=== PATIENT | female | born 1975 | race Caucasian/White ===

== ENCOUNTER 2017-07-13 13:47 | Day surgery (SDC) | payer SELFPAY ==
[~2017-07-13 13:47] MED LIST: DEXAMETHASONE SOD PHOSPHATE 10 MG/ML 1 ML VIAL IV ONE; HYDROmorphone 0.5 MG/0.5 ML SYRINGE IVP PRN; MIDAZOLAM 2 MG/2 ML VIAL IV PRN; ONDANSETRON 4 MG/2 ML VIAL IVP ONE; ceFAZolin IN SWFI 2 GM/20 ML SYRINGE IVP ONE
[2017-07-13] MEDS ORDERED: LIDOCAINE 1% 20 ML VIAL (10MG/ML) FOR IV START INTRADERMA ONE (15:00)
[2017-07-13] MEDS ORDERED: MIDAZOLAM 2 MG/2 ML VIAL IVP ONE (15:59)
[2017-07-13] MEDS ORDERED: fentaNYL (PF) 50 MCG/ML 2 ML AMP IVP ONE (15:59)
[2017-07-13] MEDS ORDERED: LACTATED RINGERS 1,000 ML IV ONE ×3 (16:00→18:15)
[2017-07-13] MEDS ORDERED: KETAMINE 10 MG/ML 20 ML VIAL ONE (16:50)
[2017-07-13] MEDS ORDERED: PROPOFOL 10 MG/ML 20 ML VIAL IV ONE (16:50)
[2017-07-13] MEDS ORDERED: MIDAZOLAM 2 MG/2 ML VIAL ONE (16:50)
[2017-07-13] MEDS ORDERED: diphenhydrAMINE 50 MG/ML 1 ML VIAL ONE (16:50)
[2017-07-13] MEDS ORDERED: fentaNYL (PF) 50 MCG/ML 2 ML AMP ONE (16:50)
[2017-07-13 16:55] LABS: CH 32.9; CHCM 33.2; HCT 45.5 % (34.0-46.0); HDW 2.16; HGB 14.8 gm/dL (11.4-16.0); MCH 32.5 pg (25.0-35.0); MCHC 32.6 g/dL (31.0-37.0); MCV 99.6 fL (80.0-100.0); Mean Platelet Volume 10.2; RBC 4.56 m/uL (3.80-5.40); WBC 3.8 k/uL (3.8-10.6)
[2017-07-13] MEDS ORDERED: HYDROmorphone 1 MG/ML 1 ML SYRINGE IVP PRN ×3 (17:00)
[2017-07-13] MEDS ORDERED: METOCLOPRAMIDE 5 MG/ML 2 ML VIAL IVP PRN (17:00)
[2017-07-13] MEDS ORDERED: PROCHLORPERAZINE SUPPOSITORY 25 MG SUPP RECTAL PRN (17:00)
[2017-07-13] MEDS ORDERED: SENNOSIDES-DOCUSATE SODIUM 1 EACH TAB PO PRN (17:00)
[2017-07-13] MEDS ORDERED: ONDANSETRON 4 MG/2 ML VIAL IVP PRN (17:00)
[2017-07-13] MEDS ORDERED: diphenhydrAMINE 25 MG CAP PO PRN (17:00)
[2017-07-13] MEDS ORDERED: hydrOXYzine PAMOATE 25 MG CAP PO PRN (17:00)
[2017-07-13] MEDS ORDERED: TEMAZEPAM 15 MG CAP PO PRN (17:00)
[2017-07-13] MEDS ORDERED: ceFAZolin 1,000 MG in SODIUM CHLORIDE 0.9% 1,000 ML IRRIGATION ONE (18:00)
--- NOTE | 2017-07-13 19:01 | P.ONQ ---
Anesthesiology Proc Note - PNB - Peripheral Nerve Block Performed Right Popliteal Single Time Out Performed: Yes Indication: Acute Post-Operative Pain, Analgesia Specifically requested for management of pain by DrIliana: Jorge L Flores Sedation Type: Sedate with meaningful contact maintained Preparation: Sterile Prep Position: Supine (Left Lateral) Catheter: None Needle Types: Other (see comment) (Pajunk) Needle Size: 50mm (2") Needle Gauge: 21 Technique: Ultrasound Injectate: Other (see comment) (15 cc 0.5 ropivicaine + 15 cc 2% lidocaine) Adjunct: Epinephrine (see comment for dilution ratio) (1:200,000) Blood Aspirated: No Pain Paresthesia on Injection Noted: No Resistance on Injection: Normal Events: Uneventful and Well Tolerated
--- NOTE | 2017-07-13 19:15 | P.OP ---
Date of Procedure: 07/13/17 Preoperative Diagnosis: 1. closed right trimalleolar ankle fracture 2. Current every day cigarette smoker 3. Chronic alcohol use Postoperative Diagnosis: same Procedure(s) Performed: open reduction and internal fixation right medial and lateral malleolus, nonoperative management right posterior malleolus fracture Anesthesia: regional, spinal Surgeon: Jorge L Flores Estimated Blood Loss (ml): 20 IV fluids (ml): 1,300 Pathology: none sent Condition: stable Disposition: PACU Indications for Procedure: the patient is a 41-year-old female who sustained a fall when she slipped on an acorn in late June. She was brought to the emergency department with an isolated injury in her right ankle. She underwent closed reduction of an ankle fracture followed by application of a splint. She was seen by myself in the office. She was found to have a displaced trimalleolar ankle fracture. She underwent unroofing of hemorrhagic fracture blisters both medially and laterally. She had Silvadene dressing placed followed by well-padded bulky Mosquera splint. She was also put on Bactrim. I saw the patient last week and she had resolution of her swelling and healing of her fracture blisters. I recommended open reduction internal fixation of her right ankle fracture. We discussed potential risks and complications including but not limited to risk of anesthesia, risk of superficial infection, risk of deep infection, risk of delayed wound healing, risks of superficial wound necrosis, risk of fracture nonunion, risk of fracture malunion, risk of intraoperative fracture, risk of postoperative fracture, risk of postoperative displacement requiring further surgery, risk of chronic pain, risk of chronic swelling, risk of inability to regain preinjury level of function, risk of generalized to satisfaction with surgery, risk of DVT, risk of PE, risk of other medical problems, and possibly loss of life or limb. The patient voiced her understanding of this and also acknowledges that she is at a much higher risk of having a complication due to her history of smoking and chronic alcohol abuse. Description of Procedure: he was identified in preoperative holding and the correct right ankle was marked with my initials. I reviewed the consent form with the patient and her daughter and all their questions were answered. The patient had a popliteal and saphenous nerve block placed by anesthesia. She was then brought back to the operating room. She was positioned on the OR table and a spinal anesthetic and preoperative antibiotics were administered. The patient's bulky Mosquera splint was taken down. On inspection of the ankle there were healed fracture blisters and wrinkling of the skin. A tourniquet was applied to the proximal aspect of the right thigh. The left leg was secured to the table using foam and tape. A bone foam bump was placed under her right buttock. A ramp was placed under her right leg. The patient's right leg was then prepped and draped in the standard sterile fashion. Prior to starting surgery timeout was performed identifying the correct patient, operative extremity, and procedure. The patient's leg was then elevated, exsanguinated with an Esmarch bandage and the tourniquet was inflated to 250 mmHg. I began by outlining a straight lateral incision to the lateral malleolus. Skin incision was made a 15 blade scalpel. Dissection was carried down carefully through the subcutaneous tissue with tenotomy scissors. The fracture was then identified and sharply debrided. The fracture was then gently reduced and the reduction was held with 2 kebjj-sh-rjdor reduction clamps. Fluoroscopy was used to verify reduction. The fibula fracture appeared to be out to length and the talus was reduced within the ankle mortise. I then contoured a 8 hole one third tubular plate to use as a posterior lateral construct. I placed a single 3.5 mm screw in the hole just proximal to the fracture bring the plate down to bone. I then placed a second 3.5 mm screw in the most proximal hole of the plate. Attention was then turned distally. I placed a fully threaded 3.5 mm screw in the most distal hole of the plate. I then placed 3 additional screws proximal to the plate. I then placed a lag screw through the seventh hole of the plate. A 3.5 mm drill bit was used to create a gliding hole through the posterior cortex the distal fragment and a 2.5 mm drill bit was used to create a threaded hole knee anterior cortex of the proximal fragment. A fully threaded 3.5 monitor lag screw is placed across the fracture generating excellent compression. At this point both reduction clamps were removed and the fibular reduction held. I verified both the reduction and hardware placement with C-arm fluoroscopy. Attention was then turned to the medial malleolus. I outlined a straight medial approach over the medial malleolus. Skin incision made a 15 blade scalpel. I dissected carefully down to the subcutaneous tissue with tenotomy scissors. The saphenous vein and nerve were identified and retracted anteriorly.. Using a scalpel I cleaned the fracture site of debris. I poked the fragment open and there were no loose osteochondral fragments in the joint. I then used a 2.0 mm jewel bit to create a single hole just proximal to the fracture. Using a [id number] reduction clamp I placed one jose in the previously made drill hole and the other jose at the tip of the medial malleolus. I gently reduced the medial malleolus fragment. On inspection the fragment appeared to be anatomically reduced. Fluoroscopy was used to verify position of the fragment. I then placed 2 K wires both anteriorly and posterior to the reduction clamp. I verified position of both K wires with fluoroscopy. I then used a cannulated 2.7 drill bit to create a track over both wires. Both wires were then remov and fully threaded 3.5 mm screws measuring 55 mm were placed. the reduction clamp was removed and the reduction held. Fluoroscopy was then brought in to take final x-rays. On the mortise view the fibula appeared to be out to length. The talus was reduced within the ankle mortise. There was no widening of the medial clear space. A manual external rotation stress x-ray showed no widening of the medial clear space or syndesmosis. A true talar dome lateral x-ray the ankle show the hardware in a couple position and the talus centered under the tibial plafond. At this point both wounds were copiously irrigated. the fascia over the lateral malleolus was closed with a running 0 Vicryl stitch. The deep subcutaneous tissue was reapproximated using 2-0 Vicryl. The skin was closed using a tension free closure including 3-0 nylon Misbahgower modification of the Donati stitch. The medial wound was then irrigated. The deep subcu was reapproximated using 2-0 Vicryl. The skin was closed using a tension free 3-0 nylon Algor modification the Donati stitch. I verified that all instrument, sponge, and sharp counts were correct. The tourniquet was let down area a sterile dressing consisting of Betadine soaked Adaptic, 4 x 4, and web roll was applied. The drapes were taken down and a well-padded bulky Mosquera splint in neutral was placed. The patient was then awoken from her anesthetic, transferred from the operating table to the [facility] and brought to PACU without the procedure well. Plan: the patient is going to be admitted overnight for pain control and IV antibiotics. She is remain strictly nonweightbearing on her right lower extremity. She can discharge home when her pain is controlled and she passes physical therapy.
[2017-07-13] MEDS: LACTATED RINGERS 1,000 ML IV SCH ×2 (20:47→20:48)
[2017-07-13] MEDS: HYDROcodone/APAP 10-325MG 1 EACH TAB PO PRN (20:54)
[2017-07-13] MEDS: ASPIRIN 325 MG TAB PO SCH (21:18)
[2017-07-13] MEDS: oxyCODONE-APAP 5-325MG 1 EACH TAB PO PRN (22:03)
[2017-07-13 22:09] VITALS: BMI 22.4
--- NOTE | 2017-07-13 22:12 | FL ---
EXAMINATION TYPE: FL guidance operating room, XR ankle limited RT DATE OF EXAM: 07/13/2017 CLINICAL HISTORY: Right ankle bimalleolar fracture. TECHNIQUE: Fluoroscopy. Intraoperative limited views right ankle. COMPARISON: Right ankle x-ray June 26, 2017 FINDINGS: Fluoroscopic guidance was provided during open reduction internal fixation procedure perfo rmed by Dr. Flores. A total of 1 minute 34 seconds of fluoroscopic time was utilized during the pr ocedure and 4 spot images are acquired. Images acquired show placement of lateral fixating plate through lateral malleolus spiral fracture an d 2 fixating screws through oblique intra-articular medial malleolus fracture. Satisfactory alignment is seen on intraoperative images provided. IMPRESSION: As Above.
[2017-07-13] MEDS: ceFAZolin IN SWFI 2 GM/20 ML SYRINGE IVP SCH (23:10)
[2017-07-14] MEDS: HYDROcodone/APAP 10-325MG 1 EACH TAB PO PRN ×3 (01:57→10:42)
[2017-07-14 02:38] VITALS: RESP 16
[2017-07-14] MEDS: oxyCODONE-APAP 5-325MG 1 EACH TAB PO PRN ×2 (04:47→08:52)
[2017-07-14] MEDS: LACTATED RINGERS 1,000 ML IV SCH ×2 (05:34→05:46)
[2017-07-14 07:48] VITALS: BP 128/83; PULSE 67; TEMP 98
[2017-07-14] MEDS: ASPIRIN 325 MG TAB PO SCH (08:06)
[2017-07-14] MEDS: ceFAZolin IN SWFI 2 GM/20 ML SYRINGE IVP SCH (08:52)
--- NOTE | 2017-07-14 09:03 | P.DS ---
Providers Date of admission: 07/13/17 Expected date of discharge: 07/14/17 Attending physician: Jorge L Flores Primary care physician: Radha Blancas - Discharge Diagnosis(es) (1) Bimalleolar ankle fracture Patient was admitted to the OR on 07/13/17 to undergo ORIF of right bimalleolar ankle fracture. She had failed conservative measures as an outpatient and desired to proceed with elective surgery after given informed consent. She underwent the above procedure which she tolerated well without complication. Postoperative hospital course has remained without complication. On day of discharge she is afebrile, vital signs stable, labs within acceptable ranges, tolerating by mouth meds and diet, voiding without difficulty, positive flatus, denies abdominal pain or calf pain, pain is controlled on oral pain medication and has no new complaints. Wound is benign, neurovascular status is intact, calf is soft and nontender, abdomen soft and nontender. Review of systems is negative for numbness, tingling, fever, chills, chest pain, shortness breath, nausea, vomiting, dizziness, headaches, slurred speech or other Current Visit: No Status: Acute Priority: Medium Procedures: ORIF right ankle fracture Patient Condition at Discharge: Good Plan - Discharge Summary Discharge Rx Participant: Yes New Discharge Prescriptions: New Aspirin 325 mg PO BID #60 tab Docusate [Colace] 100 mg PO BID #60 capsule HYDROcodone/APAP 10-325MG [[place] 10-325] 1 tab PO Q4HR PRN #40 tab PRN Reason: Pain oxyCODONE-APAP 5-325MG [Percocet 5-325 mg] 1 tab PO Q6HR PRN #30 tab PRN Reason: Pain No Action Ibuprofen [Motrin] 600 mg PO Q6HR PRN #20 tab PRN Reason: For pain Sulfamethox-Tmp 800-160Mg [Bactrim DS 800-160 mg] 1 tab PO BID oxyCODONE HCL/ACETAMINOPHEN [Percocet 5-325 mg] 1 tab PO Q8HR PRN PRN Reason: Pain Discharge Medication List Ibuprofen [Motrin] 600 mg PO Q6HR PRN #20 tab 06/26/17 [Rx] Sulfamethox-Tmp 800-160Mg [Bactrim DS 800-160 mg] 1 tab PO BID 07/08/17 [History ] oxyCODONE HCL/ACETAMINOPHEN [Percocet 5-325 mg] 1 tab PO Q8HR PRN 07/08/17 [ History] Aspirin 325 mg PO BID #60 tab 07/13/17 [Rx] Docusate [Colace] 100 mg PO BID #60 capsule 07/13/17 [Rx] HYDROcodone/APAP 10-325MG [[place] 10-325] 1 tab PO Q4HR PRN #40 tab 07/13/17 [Rx] oxyCODONE-APAP 5-325MG [Percocet 5-325 mg] 1 tab PO Q6HR PRN #30 tab 07/13/17 [ Rx] Follow up Appointment(s)/Referral(s): Jorge L Flores MD [Medical Doctor] - 10 Days Activity/Diet/Wound Care/Special Instructions: Maintain splint Elevate lower extremity Take meds as directed Keep splint clean and dry Nonweightbearing Follow up with Dr. lFores in office Discharge Disposition: HOME SELF-CARE
== END 2017-07-14 10:50 | disposition home or self-care (01) ==
LOC: OR 13:47 → 3SUR 18:55 → OR 07-14 10:50
PROVIDERS: ATTEND Orthopaedic Surgery
DX: S82.851A Displaced trimalleolar fracture of right lower leg, initial encounter for closed fracture (principal); W01.0XXA Fall on same level from slipping, tripping and stumbling without subsequent striking against object, initial encounter; F17.200 Nicotine dependence, unspecified, uncomplicated; Z79.2 Long term (current) use of antibiotics; Z79.891 Long term (current) use of opiate analgesic; Z88.4 Allergy status to anesthetic agent
CPT/HCPCS: 27814; 97161; 81025; 85027; 73600; C1713 ×3; J2250; J1200; J1100; J0690 ×3; J2405; J3010; J2704

== ENCOUNTER 2020-05-22 20:20 | Inpatient (IN) | payer OTHER ==
[2020-05-22] MEDS ORDERED: ONDANSETRON 4 MG/2 ML VIAL IVP PRN (20:48)
[2020-05-22] MEDS ORDERED: NALOXONE 0.4 MG/ML 1 ML VIAL IV PRN (20:48)
--- NOTE | 2020-05-22 20:56 | ED ---
General Adult HPI - General Chief complaint: Abdominal Pain Stated complaint: Abd pain Time Seen by Provider: 05/22/20 20:25 Source: patient, EMS, RN notes reviewed, old records reviewed Mode of arrival: EMS Limitations: no limitations - History of Present Illness Initial comments: 44-year-old female presenting for evaluation of ruptured appendicitis. Patient was transferred from outside facility with CT showing concern for ruptured appendicitis and small abscess formation. Patient states that for approximately one week she has had right lower quadrant abdominal pain, fever, poor appetite and vomiting. Patient is otherwise healthy, past medical history of asthma and she is a current smoker. She was given antibiotics and transferred for surgical evaluation. - Related Data Home Medications Medication Instructions Recorded Confirmed Sulfamethox-Tmp 800-160Mg [Bactrim 1 tab PO BID 07/08/17 07/13/17 DS 800-160 mg] oxyCODONE HCL/ACETAMINOPHEN 1 tab PO Q8HR PRN 07/08/17 07/13/17 [Percocet 5-325 mg] Previous Rx's Medication Instructions Recorded Aspirin 325 mg PO BID #60 tab 07/13/17 Docusate [Colace] 100 mg PO BID #60 capsule 07/13/17 HYDROcodone/APAP 10-325MG [[place] 1 tab PO Q4HR PRN #40 tab 07/13/17 10-325] oxyCODONE-APAP 5-325MG [Percocet 1 tab PO Q6HR PRN #30 tab 07/13/17 5-325 mg] Allergies Allergy/AdvReac Type Severity Reaction Status Date / Time Anesthetics - Amide Type Allergy Unknown Verified 05/22/20 20:30 Review of Systems ROS Statement: Those systems with pertinent positive or pertinent negative responses have been documented in the HPI. ROS Other: All systems not noted in ROS Statement are negative. Past Medical History Past Medical History: Asthma Additional Past Medical History / Comment(s): MALIGNANT HYPERTHERMIA, FELL AND FX RIGHT ANKLE (06/26/17), STATES SHE HAD BLISTERS ON HER LEG AND IS TAKING BACTRIM FOR THIS- HAS SPLINT ON WHICH IS COVERING BLISTERS., NWB RIGHT FOOT, USING WALKER. History of Any Multi-Drug Resistant Organisms: None Reported Past Surgical History: Cholecystectomy, Orthopedic Surgery, Tonsillectomy, Tubal Ligation Past Anesthesia/Blood Transfusion Reactions: Malignant Hyperthermia Additional Past Anesthesia/Blood Transfusion Reaction / Comment(s): STATES MALIGNANT HYPERTHERMIA AT 5-6 YEARS OLD WITH TONSILLECTOMY. STATES SURGERY WAS OUT OF STATE AND SHE HAS PAPERS THAT SHE WILL BRING WITH HER. STATES NO PROBLEM WITH GALL BLADDER SURGERY AND TUBAL LIGATION. Past Psychological History: Depression Smoking Status: Current every day smoker Past Alcohol Use History: Occasional Past Drug Use History: Marijuana - Past Family History Mother Family Medical History: No Reported History General Exam Limitations: no limitations General appearance: alert, in no apparent distress Head exam: Present: atraumatic, normocephalic Eye exam: Present: normal appearance, PERRL ENT exam: Present: normal exam Neck exam: Present: normal inspection. Absent: tenderness, meningismus Respiratory exam: Present: normal lung sounds bilaterally. Absent: respiratory distress, wheezes Cardiovascular Exam: Present: regular rate, normal rhythm GI/Abdominal exam: Present: soft, tenderness (Right focal tenderness, no rigidity). Absent: distended, rigid Extremities exam: Present: normal inspection, normal capillary refill. Absent: pedal edema Course Vital Signs 05/22/20 20:30 Temperature 98.1 F Pulse Rate 91 Respiratory 18 Rate Blood Pressure 129/90 O2 Sat by Pulse 98 Oximetry Medical Decision Making - Medical Decision Making 44-year-old female with suspected ruptured appendicitis. Patient continued on Zosyn. I did discuss case with Dr. Bautista who will admit the patient. Infectious disease has been placed on consult. Disposition Clinical Impression: Acute appendicitis Disposition: ADMITTED IP TO THIS [facility] Condition: Stable Is patient prescribed a controlled substance at d/c from ED?: No Referrals: Michael Marcus MD [Primary Care Provider] - 1-2 days Decision to Admit Reason: Admit from EC Decision Date: 05/22/20 Decision Time: 20:55
[2020-05-22] MEDS: SODIUM CHLORIDE 0.9% 1,000 ML IV SCH (21:05)
[2020-05-22 21:15] LABS: Basophils # (A) 0.1 k/uL (0-0.2); Basophils % (A) 1 %; Eosinophils # (A) 0.1 k/uL (0-0.7); Eosinophils % (A) 1 %; HCT 38.9 % (34.0-46.0); HGB 12.9 gm/dL (11.4-16.0); Lymphocytes # (A) 1.4 k/uL (1.0-4.8); Lymphocytes % (A) 14 %; MCV 96.9 fL (80.0-100.0); Monocytes # (A) 0.6 k/uL (0-1.0); Monocytes % (A) 6 %; Neutrophils # (A) 7.6 k/uL (1.3-7.7); Neutrophils % (A) 77 %; Platelet Count 174 k/uL (150-450); RBC 4.02 m/uL (3.80-5.40); RDW 12.7 % (11.5-15.5)
[2020-05-22 21:21] LABS: INR 0.9 (<1.2); Prothrombin Time 9.9 sec (9.0-12.0)
[2020-05-22 21:24] LABS: ALT 55 U/L (4-34); AST 46 U/L (14-36); African American GFR (CKD) >90 (>60 ml/min/1.73 sqM); Albumin 3.2 g/dL (3.5-5.0); Alkaline Phosphatase 79 U/L (38-126); Anion Gap 5 mmol/L; Blood Urea Nitrogen 4 mg/dL (7-17); Calcium 8.8 mg/dL (8.4-10.2); Carbon Dioxide 26 mmol/L (22-30); Chloride 103 mmol/L (98-107); Glucose 100 mg/dL (74-99); Magnesium 1.8 mg/dL (1.6-2.3); Non-African American GFR(CKD) >90 (>60 ml/min/1.73 sqM); Sodium 134 mmol/L (137-145); Total Bilirubin 1.1 mg/dL (0.2-1.3)
[2020-05-22] MEDS: HYDROmorphone 0.5 MG/0.5 ML SYRINGE IVP PRN (21:56)
[2020-05-23] MEDS: HYDROmorphone 0.5 MG/0.5 ML SYRINGE IVP PRN ×7 (01:09→21:04)
[2020-05-23] MEDS: SODIUM CHLORIDE 0.9% 1,000 ML IV SCH ×3 (04:03→21:12)
[2020-05-23] MEDS: PIPERACILLIN-TAZOBACTAM 3.375 GM in SODIUM CHLORIDE 0.9% 100 ML IVPB SCH ×3 (04:08→19:59)
[2020-05-23] MEDS: ACETAMINOPHEN TAB 325 MG TAB PO PRN ×2 (08:59→14:53)
--- NOTE | 2020-05-23 10:00 | P.GSHP ---
History of Present Illness H&P Date: 05/23/20 Chief Complaint: Ruptured appendicitis 44-year-old female transferred from an outside institution after having complaints of abdominal pain for the last 1-2 weeks. Patient says that she was having lower abdominal pain starting about 1-2 weeks ago. Gradually increasing in severity and now primarily located in the right lower quadrant. Appetite has been diminished. Patient states she did feel febrile at times. Described anorexia and intermittent nausea and vomiting. When thinking back the patient states that she has had some occasional episodes of diarrhea and nausea and vomiting for the last few months. Diarrhea would be 3-4 times per day at its most severe. No rectal bleeding or melena. No mucus. Patient denies vaginal discharge. Patient comes with an outside CAT scan showing a enhancing appendix, no appendicolith, 2-3 small abscess collections in the pelvis 1 with a small bubble of air in the left hemipelvis. Etiology thought to be related to compl icated appendicitis with perforation. Patient does not appear toxic. White blood cell count is normal. Vital signs stable. - Review of Systems Comment: The patient denies any acute changes in vision or hearing, no dysphagia or odynophagia, no chest pain or shortness of breath, no dysuria or hematuria, no headache, no runny nose, no rectal bleeding or melena, no unexplained weight loss Past Medical History Past Medical History: Asthma Additional Past Medical History / Comment(s): MALIGNANT HYPERTHERMIA History of Any Multi-Drug Resistant Organisms: None Reported Past Surgical History: Cholecystectomy, Orthopedic Surgery, Tonsillectomy, Tubal Ligation Past Anesthesia/Blood Transfusion Reactions: Malignant Hyperthermia Additional Past Anesthesia/Blood Transfusion Reaction / Comment(s): STATES MALIGNANT HYPERTHERMIA AT 5-6 YEARS OLD WITH TONSILLECTOMY. STATES SURGERY WAS OUT OF STATE AND SHE HAS PAPERS THAT SHE WILL BRING WITH HER. STATES NO PROBLEM WITH GALL BLADDER SURGERY AND TUBAL LIGATION. Past Psychological History: Depression Smoking Status: Current every day smoker Past Alcohol Use History: Occasional Additional Past Alcohol Use History / Comment(s): SMOKES a pack a day. states drinks socially Past Drug Use History: Marijuana - Past Family History Mother Family Medical History: No Reported History Medications and Allergies Home Medications Medication Instructions Recorded Confirmed Type Glycopyrrolate/Formoterol Fum 1 puff INHALATION RT-BID 05/22/20 05/22/20 History [Bevespi Aerosphere Inhaler] Umeclidinium [place] [Incruse 1 puff INHALATION RT-DAILY 05/22/20 05/22/20 History Ellipta] Allergies Allergy/AdvReac Type Severity Reaction Status Date / Time Anesthetics - Amide Type Allergy Unknown Verified 05/22/20 21:02 Surgical - Exam Vital Signs Temp Pulse Resp BP Pulse Ox 98.1 F 91 18 129/90 98 05/22/20 20:30 05/22/20 20:30 05/22/20 20:30 05/22/20 20:30 05/22/20 20:30 Physical exam: General: Well-developed, well-nourished HEENT: Normocephalic, sclerae nonicteric Abdomen: Right lower quadrant tenderness without rebound or guarding, nondistended Extremities: No edema Neuro: Alert and oriented Results - Labs 05/22/20 20:57 05/22/20 20:57 Abnormal Lab Results - Last 24 Hours (Table) 05/22/20 Range/Units 20:57 Sodium 134 L (137-145) mmol/L BUN 4 L (7-17) mg/dL Creatinine 0.46 L (0.52-1.04) mg/dL Glucose 100 H (74-99) mg/dL AST 46 H (14-36) U/L ALT 55 H (4-34) U/L Total Protein 6.0 L (6.3-8.2) g/dL Albumin 3.2 L (3.5-5.0) g/dL Diabetes panel 05/22/20 Range/Units 20:57 Sodium 134 L (137-145) mmol/L Potassium 4.0 (3.5-5.1) mmol/L Chloride 103 (98-107) mmol/L Carbon Dioxide 26 (22-30) mmol/L BUN 4 L (7-17) mg/dL Creatinine 0.46 L (0.52-1.04) mg/dL Glucose 100 H (74-99) mg/dL Calcium 8.8 (8.4-10.2) mg/dL AST 46 H (14-36) U/L ALT 55 H (4-34) U/L Alkaline Phosphatase 79 (38-126) U/L Total Protein 6.0 L (6.3-8.2) g/dL Albumin 3.2 L (3.5-5.0) g/dL Calcium panel 05/22/20 Range/Units 20:57 Calcium 8.8 (8.4-10.2) mg/dL Albumin 3.2 L (3.5-5.0) g/dL Pituitary panel 05/22/20 Range/Units 20:57 Sodium 134 L (137-145) mmol/L Potassium 4.0 (3.5-5.1) mmol/L Chloride 103 (98-107) mmol/L Carbon Dioxide 26 (22-30) mmol/L BUN 4 L (7-17) mg/dL Creatinine 0.46 L (0.52-1.04) mg/dL Glucose 100 H (74-99) mg/dL Calcium 8.8 (8.4-10.2) mg/dL Adrenal panel 05/22/20 Range/Units 20:57 Sodium 134 L (137-145) mmol/L Potassium 4.0 (3.5-5.1) mmol/L Chloride 103 (98-107) mmol/L Carbon Dioxide 26 (22-30) mmol/L BUN 4 L (7-17) mg/dL Creatinine 0.46 L (0.52-1.04) mg/dL Glucose 100 H (74-99) mg/dL Calcium 8.8 (8.4-10.2) mg/dL Total Bilirubin 1.1 (0.2-1.3) mg/dL AST 46 H (14-36) U/L ALT 55 H (4-34) U/L Alkaline Phosphatase 79 (38-126) U/L Total Protein 6.0 L (6.3-8.2) g/dL Albumin 3.2 L (3.5-5.0) g/dL Assessment and Plan (1) Appendicitis with peritoneal abscess Narrative/Plan: 44-year-old female with complicated appendicitis. Clinical scenario discussed in detail with the patient. At this time the small abscess collections in the pelvis are small and not amenable to drainage or aspiration. Options of conservative management versus surgical management discussed in detail. Given the appearance and the patient's history favor nonoperative approach at this time given the likely increased risk of surgical morbidity with early intervention. Continue IV antibiotics. Resume diet. Monitor for any worsening symptoms. Would anticipate discharge on oral or IV antibiotics for a prolonged course. Patient may benefit from later interval appendectomy depending on her progress and possible follow-up CAT scan imaging. Patient is agreeable. Risk of nonoperative approach discussed and noted to include peritonitis, worsening abscess, sepsis, possible need for eventual surgery. She understands and all questions answered. Current Visit: Yes Status: Acute Code(s): K35.33 - ACUTE APPENDICITIS WITH PERF AND LOC PERITONITIS, WITH ABSCS SNOMED Code(s): 51403744
[2020-05-23] MEDS: NICOTINE 21MG/24HR PATCH TRANSDERM SCH (10:43)
[2020-05-23] MEDS ORDERED: LORazepam 2 MG/ML INJ IV PRN ×2 (11:57)
[2020-05-23] MEDS: HEPARIN SODIUM,PORCINE 5,000 UNIT/ML 1 ML VIAL SQ SCH (17:37)
[2020-05-23] MEDS: THIAMINE 100 MG TAB PO SCH (17:38)
--- NOTE | 2020-05-23 23:30 | P.CONS ---
History of Present Illness - Reason for Consult Consult date: 05/23/20 Perforated appendicitis Requesting physician: Arnie Bautista - Chief Complaint Abdominal pain 1 weeks - History of Present Illness Patient is 44 year female presenting to our skilled facility with the lower abdominal pain the patient has been going on for about a week or 2 before presentation hospital the patient's pain has been mostly in the right lower quadrant area patient is currently pain to be sharp in nature that has gradually increased in severity to almost 10 out of 10 by the time she presented to the hospital with some radiation across her lower abdominal patient did have associated nausea vomiting and did have an episode of diarrhea patient be complaining of fever at the Center patient has been evaluated outside facility with the patient did have a CT of abdominal pelvis with evidence of appendicolith, 2-3 cm abscess patient subsequently has been transferred to [facility] for further management, patient was started on Zosyn and infectious disease consulted for further management of antibiotic therapy Review of Systems Positive point has been mentioned in the HPI rest of the systems are negative Past Medical History Past Medical History: Asthma Additional Past Medical History / Comment(s): MALIGNANT HYPERTHERMIA History of Any Multi-Drug Resistant Organisms: None Reported Past Surgical History: Cholecystectomy, Orthopedic Surgery, Tonsillectomy, Tubal Ligation Past Anesthesia/Blood Transfusion Reactions: Malignant Hyperthermia Additional Past Anesthesia/Blood Transfusion Reaction / Comm: STATES MALIGNANT HYPERTHERMIA AT 5-6 YEARS OLD WITH TONSILLECTOMY. STATES SURGERY WAS OUT OF STATE AND SHE HAS PAPERS THAT SHE WILL BRING WITH HER. STATES NO PROBLEM WITH GALL BLADDER SURGERY AND TUBAL LIGATION. Past Psychological History: Depression Smoking Status: Current every day smoker Past Alcohol Use History: Occasional Additional Past Alcohol Use History / Comment(s): SMOKES a pack a day. states drinks socially Past Drug Use History: Marijuana - Past Family History Mother Family Medical History: No Reported History Medications and Allergies Home Medications Medication Instructions Recorded Confirmed Type Glycopyrrolate/Formoterol Fum 1 puff INHALATION RT-BID 05/22/20 05/22/20 History [Bevespi Aerosphere Inhaler] Umeclidinium [place] [Incruse 1 puff INHALATION RT-DAILY 05/22/20 05/22/20 History Ellipta] Allergies Allergy/AdvReac Type Severity Reaction Status Date / Time Anesthetics - Amide Type Allergy Unknown Verified 05/22/20 21:02 Physical Exam Vitals: Vital Signs Temp Pulse Resp BP Pulse Ox 05/23/20 14:15 98.3 F 100 18 151/96 95 05/23/20 07:30 98.7 F 96 16 143/89 99 05/23/20 06:56 98.7 F 102 H 18 139/88 95 05/23/20 00:45 98.5 F 99 14 136/94 93 L Intake and Output 05/23/20 05/23/20 05/24/20 14:59 22:59 06:59 Intake Total 480 455 Balance 480 455 Intake: Intake, IV Titration 455 Amount Sodium Chloride 0.9% 1, 455 000 ml @ 130 mls/hr IV . Q7H42M [facility] Rx#:[id number] Oral 480 Other: Voiding Method Toilet Toilet # Voids 2 1 GENERAL DESCRIPTION: Middle-aged male lying in bed, no distress. No tachypnea or accessory muscle of respiration use. HEENT: Shows Pallor , no scleral icterus. Oral mucous membrane is dry. No pharyngeal erythema or thrush NECK: Trachea central, no thyromegaly. LUNGS: Unlabored breathing. Clear to auscultation anteriorly. No wheeze or crackle. HEART: S1, S2, regular rate and rhythm. No loud murmur ABDOMEN: Soft, mild right lower quadrant tenderness , no guarding or rigidity, no organomegaly EXTREMITIES: No edema of feet. SKIN: No rash, no masses palpable. NEUROLOGICAL: The patient is awake, alert, oriented x3, mood and affect normal. Results CBC & Chem 7: 05/22/20 20:57 05/22/20 20:57 Assessment and Plan Assessment: 1-patient presented to hospital with abdominal pain of one-week duration and has a progressive getting worse along with a fever in this patient did have CT evidence of perforated appendicitis with a small abscess will need to cover for the enteric gram-negative with a likely pathogen, and this patient has been on any medication is aspirin sensitive pathogen such as E. coli (1) Appendicitis with peritoneal abscess Current Visit: Yes Status: Acute Code(s): K35.33 - ACUTE APPENDICITIS WITH PERF AND LOC PERITONITIS, WITH ABSCS SNOMED Code(s): 99691823 Plan: 1- Zosyn 3.375 g every 8 hours 2- IV fluids and bowel rest We will follow on clinical condition and cultures to further adjust medication if needed Thank you for this consultation will follow this patient with you Time with Patient: Greater than 30
[2020-05-24] MEDS: HYDROmorphone 0.5 MG/0.5 ML SYRINGE IVP PRN ×6 (00:22→16:25)
[2020-05-24] MEDS: HEPARIN SODIUM,PORCINE 5,000 UNIT/ML 1 ML VIAL SQ SCH ×3 (00:25→15:38)
[2020-05-24] MEDS: PIPERACILLIN-TAZOBACTAM 3.375 GM in SODIUM CHLORIDE 0.9% 100 ML IVPB SCH ×3 (04:08→20:20)
[2020-05-24] MEDS: SODIUM CHLORIDE 0.9% 1,000 ML IV SCH ×3 (04:11→19:42)
[2020-05-24] MEDS: THIAMINE 100 MG TAB PO SCH ×2 (07:15→17:42)
[2020-05-24] MEDS: NICOTINE 21MG/24HR PATCH TRANSDERM SCH (07:16)
--- NOTE | 2020-05-24 16:46 | P.PN ---
Subjective Progress Note Date: 05/24/20 She reports moderate right lower quadrant pain present 5 days prior to admission. She reports right lower quadrant pain for 2 weeks. Currently she reports pain is worse at night. Last CT scan 05/22 with ruptured appendicits. ABDOMEN: Tender right lower quadrant with gaurding STUDIES: CT reviewed. PLAN: 1. Repeat CBC 2. Pain medications adjusted to Tylenol 650 mg scheduled, Toradol 15 q 6, and increased dilaudid to 1 mg. 3. Will need repeat CT scan in future Objective - Vital Signs Vital signs: Vital Signs Temp 99.4 F 05/24/20 15:00 Pulse 99 05/24/20 15:00 Resp 20 05/24/20 15:00 BP 136/86 05/24/20 15:00 Pulse Ox 94 L 05/24/20 15:00 Intake & Output 05/23/20 05/24/20 05/24/20 18:59 06:59 18:59 Intake Total 480 1560 1040 Balance 480 1560 1040 Intake: IV 1040 Sodium Chloride 0.9% 1, 1040 000 ml @ 130 mls/hr IV . Q7H42M [facility] Rx#:[id number] Intake, IV Titration 1560 Amount Sodium Chloride 0.9% 1, 1560 000 ml @ 130 mls/hr IV . Q7H42M [facility] Rx#:[id number] Oral 480 Other: Voiding Method Toilet Toilet Toilet # Voids 2 1 3 - Labs CBC & Chem 7: 05/22/20 20:57 05/22/20 20:57
--- NOTE | 2020-05-24 17:19 | PN ---
PROGRESS NOTE DATE OF SERVICE: 05/24/2020 REASON FOR FOLLOWUP: Acute ruptured appendicitis. INTERVAL HISTORY: Patient is currently afebrile. The patient is breathing comfortably. She is complaining of more pain to the right lower quadrant area, more of a dull aching. No further nausea, vomiting or diarrhea. No chest pain, shortness of breath or cough. PHYSICAL EXAMINATION: Blood pressure is 136/86, pulse of 99, temperature 99.4. She is 94% on room air. General description: The patient is a middle-aged female lying in bed in no distress. Respiratory system: Unlabored breathing. Clear to auscultation anteriorly. Heart S1, S2. Regular rate and rhythm. ABDOMEN: Soft, mildly tender in right lower quadrant area. No guarding. No rigidity. LABS: No new labs have been obtained today. DIAGNOSTIC IMPRESSION AND PLAN: Patient admitted to the hospital with abdominal pain, has been diagnosed with perforated appendicitis, currently being treated with medical therapy. She is complaining of more pain. May benefit from a repeat CT. Continue with Zosyn. Repeat labs in the morning. Continue supportive care. MMODL / IJN: [id number] /
[2020-05-24] MEDS: KETOROLAC 15 MG/ML 1 ML VIAL IVP SCH (17:42)
[2020-05-24] MEDS: ACETAMINOPHEN TAB 325 MG TAB PO SCH (17:45)
[2020-05-24] MEDS: HYDROmorphone 1 MG/ML 1 ML SYRINGE IVP PRN (20:20)
--- NOTE | 2020-05-24 20:28 | P.CONS ---
History of Present Illness - Reason for Consult Consult date: 05/24/20 Medical management Requesting physician: Arnie Bautista - Chief Complaint Abdominal pain - History of Present Illness History of presenting complaint: This is a pleasant 44-year-old patient of . Patient is noticed some abdominal discomfort for close to 2 weeks. Last 4 days noted increasing pain in the right lower quadrant. Started having nausea vomiting also felt hot and cold. Normally has a bowel movement every day. For last 4 days has not had a bowel movement. Patient also long-standing smoker and drinks 12 pack a day. For close to 30 years. Patient had a computed tomography scan of the abdomen done at an outside facility found to have 2-3 small abscess collection the pelvis with 1 small bubble of air in the left hemipelvis. It was felt patient had a complicated appendicitis with perforation. Patient was made nothing by mouth started on antibiotics IV fluids. Review of systems: GEN.: Tired EYES: None HEENT: None NECK: None RESPIRATORY: None CARDIOVASCULAR: None GASTROINTESTINAL: As above GENITOURINARY: None MUSCULOSKELETAL: None LYMPHATICS: None HEMATOLOGICAL: None PSYCHIATRY: Anxious NEUROLOGICAL: None Past medical history to include: COPD, nicotine dependence, alcohol use, depression Social history: Lives alone. Not employed. Smokes a pack a day. 12 pack a day of alcohol for close to 30 years Family history: Reviewed, noncontributory to presentation Physical examination: VITAL SIGNS: 98.1, 91, 18, 129 but 90, 98% room air upon presentation GENERAL: BMI 19.4, laying in bed slightly anxious. EYES: Pupils equal. Conjunctiva normal. HEENT: External appearance of nose and ears normal, oral cavity grossly normal. NECK: JVD not raised; masses not palpable. HEART: First and second heart sounds are normal; no edema. LUNGS: Respiratory rate normal; clear to auscultation. ABDOMEN: Soft, lower abdominal tenderness, no guarding rigidity, liver spleen not palpable, no masses palpable. PSYCH: Alert and oriented x3; mood and affect anxiousl. NEUROLOGICAL: Cranial nerves grossly intact; no facial asymmetry, power and sensation grossly intact. LYMPHATICS: No lymph nodes palpable in the axilla and neck INVESTIGATIONS, reviewed in the clinical context: White count and hemoglobin 12.9 platelets 174 potassium 4 bun 4 creatinine 0.46 AST 46 ALT 55 albumin 3.2 Assessment: -Suspect it acute appendicitis complicated with likely abscess with perforation. Patient has been feeling hot and cold but no documented fever here. White count is normal. -COPD in a current smoker -Chronic nicotine dependence cigarette smoker -Chronic alcohol use disorder -Suspect alcoholic hepatitis -Hypoalbuminemia-reactive Plan: Patient's and IV Zosyn. We'll add IV Flagyl. Nicotine patch. Getting IV fluids. Let DuoNeb. Ordered a liver ultrasound. For DT prophylaxis with LAD Valium 5 mg every 8. Care was discussed with the patient question also. Thank you Dr. Francis. Past Medical History Past Medical History: Asthma Additional Past Medical History / Comment(s): MALIGNANT HYPERTHERMIA History of Any Multi-Drug Resistant Organisms: None Reported Past Surgical History: Cholecystectomy, Orthopedic Surgery, Tonsillectomy, Tubal Ligation Past Anesthesia/Blood Transfusion Reactions: Malignant Hyperthermia Additional Past Anesthesia/Blood Transfusion Reaction / Comm: STATES MALIGNANT HYPERTHERMIA AT 5-6 YEARS OLD WITH TONSILLECTOMY. STATES SURGERY WAS OUT OF STATE AND SHE HAS PAPERS THAT SHE WILL BRING WITH HER. STATES NO PROBLEM WITH GALL BLADDER SURGERY AND TUBAL LIGATION. Past Psychological History: Depression Smoking Status: Current every day smoker Past Alcohol Use History: Occasional Additional Past Alcohol Use History / Comment(s): SMOKES a pack a day. states drinks socially Past Drug Use History: Marijuana - Past Family History Mother Family Medical History: No Reported History Medications and Allergies Home Medications Medication Instructions Recorded Confirmed Type Glycopyrrolate/Formoterol Fum 1 puff INHALATION RT-BID 05/22/20 05/22/20 History [Bevespi Aerosphere Inhaler] Umeclidinium [place] [Incruse 1 puff INHALATION RT-DAILY 05/22/20 05/22/20 History Ellipta] Allergies Allergy/AdvReac Type Severity Reaction Status Date / Time Anesthetics - Amide Type Allergy Unknown Verified 05/22/20 21:02 Physical Exam Vitals: Vital Signs Temp Pulse Resp BP Pulse Ox 05/24/20 07:00 98.6 F 100 20 143/85 95 05/24/20 00:05 98.8 F 93 14 146/98 95 05/23/20 14:15 98.3 F 100 18 151/96 95 Intake and Output 05/23/20 05/24/20 05/24/20 22:59 06:59 14:59 Intake Total 455 1105 Balance 455 1105 Intake: Intake, IV Titration 455 1105 Amount Sodium Chloride 0.9% 1, 455 1105 000 ml @ 130 mls/hr IV . Q7H42M [facility] Rx#:[id number] Other: Voiding Method Toilet Toilet # Voids 1 Results CBC & Chem 7: 05/22/20 20:57 05/22/20 20:57
[2020-05-24] MEDS: IPRATROPIUM-ALBUTEROL 3 ML NEB INHALATION SCH (23:29)
[2020-05-25] MEDS: HEPARIN SODIUM,PORCINE 5,000 UNIT/ML 1 ML VIAL SQ SCH ×4 (00:10→22:57)
[2020-05-25] MEDS: ACETAMINOPHEN TAB 325 MG TAB PO SCH ×5 (00:10→22:57)
[2020-05-25] MEDS: HYDROmorphone 1 MG/ML 1 ML SYRINGE IVP PRN ×5 (00:12→23:07)
[2020-05-25] MEDS: KETOROLAC 15 MG/ML 1 ML VIAL IVP SCH ×5 (00:13→23:06)
[2020-05-25] MEDS: SODIUM CHLORIDE 0.9% 1,000 ML IV SCH ×3 (03:05→19:06)
[2020-05-25] MEDS: PIPERACILLIN-TAZOBACTAM 3.375 GM in SODIUM CHLORIDE 0.9% 100 ML IVPB SCH ×3 (05:15→20:42)
[2020-05-25 06:24] LABS: Basophils % (A) 1 %; Eosinophils # (A) 0.1 k/uL (0-0.7); Eosinophils % (A) 1 %; HCT 34.3 % (34.0-46.0); HGB 10.9 gm/dL (11.4-16.0); Lymphocytes # (A) 0.8 k/uL (1.0-4.8); Lymphocytes % (A) 12 %; MCH 31.1 pg (25.0-35.0); MCHC 31.7 g/dL (31.0-37.0); Mean Platelet Volume 8.3; Monocytes # (A) 0.6 k/uL (0-1.0); Monocytes % (A) 8 %; Neutrophils # (A) 5.3 k/uL (1.3-7.7); Neutrophils % (A) 76 %; Platelet Count 159 k/uL (150-450); RDW 12.6 % (11.5-15.5); WBC 6.9 k/uL (3.8-10.6)
[2020-05-25] MEDS: IPRATROPIUM-ALBUTEROL 3 ML NEB INHALATION SCH ×4 (07:29→19:18)
[2020-05-25] MEDS: THIAMINE 100 MG TAB PO SCH ×3 (07:31→17:58)
[2020-05-25] MEDS: NICOTINE 21MG/24HR PATCH TRANSDERM SCH (08:50)
[2020-05-25] MEDS: LORazepam 2 MG/ML INJ IV PRN ×3 (08:57→16:49)
--- NOTE | 2020-05-25 09:11 | US ---
EXAMINATION TYPE: US abdomen limited DATE OF EXAM: 05/25/2020 COMPARISON: CT 05/22/2020 from outside institution CLINICAL HISTORY: Alcohol use disorder/increased LFT. GB removed. NPO. EXAM MEASUREMENTS: Liver Length: 16.7 cm CBD: 0.6 cm Right Kidney: 11.4 x 5.3 x 4.2 cm Pancreas: wnl Liver: Appears echogenic and coarse Gallbladder: Surgically absent Evidence for sonographic Cool's sign: neg CBD: wnl Right Kidney: No hydronephrosis or masses seen IMPRESSION: Findings consistent with hepatic steatosis, hepatocellular disease.
[2020-05-25] MEDS ORDERED: IOPAMIDOL CONTRAST (ORAL USE) VIAL PO PRN (13:06)
--- NOTE | 2020-05-25 13:06 | P.PN ---
Subjective Progress Note Date: 05/25/20 Principal diagnosis: She report better pain relief with current pain medications. "I don't want norco; it makes me sick!" She reports chronic alcohol abuse and reports hallucinations yesterday. She reports pain with urination ROS: Low grade temp 99.3 ABDOMEN: Tender right lower quadrant. NEURO: Has intentional and resting tremors of the hands LABS: WBC less than 7.0 ASSESSMENT: 1. Ruptured appendix 2. Alcohol withdrawal PLAN: 1. Needs [facility] protocol for alcohol withdrawal 2. Recommend repeat CT abd/pelvis tomorrow as she may be developing organized abscess for drainage 3. Recommend urine analysis Objective - Vital Signs Vital signs: Vital Signs Temp 98.3 F 05/25/20 07:00 Pulse 96 05/25/20 07:43 Resp 18 05/25/20 07:00 BP 152/92 05/25/20 07:00 Pulse Ox 96 05/25/20 07:00 Intake & Output 05/24/20 05/25/20 05/25/20 18:59 06:59 18:59 Intake Total 1040 200 Balance 1040 200 Intake: IV 1040 Sodium Chloride 0.9% 1, 1040 000 ml @ 130 mls/hr IV . Q7H42M [facility] Rx#:[id number] Oral 200 Other: Voiding Method Toilet Toilet Toilet # Voids 3 1 - Labs CBC & Chem 7: 05/25/20 05:50 05/22/20 20:57 Labs: Abnormal Lab Results - Last 24 Hours (Table) 05/25/20 Range/Units 05:50 RBC 3.50 L (3.80-5.40) m/uL Hgb 10.9 L (11.4-16.0) gm/dL Lymphocytes # 0.8 L (1.0-4.8) k/uL
[2020-05-25] MEDS ORDERED: LORazepam 2 MG/ML INJ IV PRN ×2 (13:07)
[2020-05-25] MEDS ORDERED: THIAMINE 100 MG/ML 2 ML VIAL IM STA (13:07)
[2020-05-25 13:44] LABS: Alcohol <10 mg/dL
--- NOTE | 2020-05-25 16:25 | PN ---
PROGRESS NOTE DATE OF SERVICE: 05/25/2020 REASON FOR FOLLOWUP: Perforated appendicitis. INTERVAL HISTORY: The patient is currently afebrile. She has been complaining of pain in the right lower quadrant area, but no worsening. Some nausea but no vomiting. No chest pain, shortness of breath or cough. No diarrhea. PHYSICAL EXAMINATION: Blood pressure 152/92 with a pulse of 81, temperature 98.3. She is 96% on room air. General description is a middle-aged female lying in bed in no distress. Respiratory system: Unlabored breathing, clear to auscultation anteriorly. Heart S1, S2. Regular rate and rhythm. Abdomen soft, mildly tender in the right lower quadrant area. Extremities: No edema of the feet. LABS: Hemoglobin is 10.8, white count 6.9. DIAGNOSTIC IMPRESSION AND PLAN: Patient with acute perforated appendicitis, currently being treated with Zosyn. Still having pain and if the pain worsens, may benefit for a repeat CT before discharge to make sure no worsening abscess and need for antibiotic therapy on discharge. Continue supportive care. MMODL / IJN: [id number] /
--- NOTE | 2020-05-25 20:13 | P.PN ---
Progress Note - Text Progress Note Date: 05/25/20 - Chief Complaint Abdominal pain History of presenting complaint: This is a pleasant 44-year-old patient of . Patient is noticed some abdominal discomfort for close to 2 weeks. Last 4 days noted increasing pain in the right lower quadrant. Started having nausea vomiting also felt hot and cold. Normally has a bowel movement every day. For last 4 days has not had a bowel movement. Patient also long-standing smoker and drinks 12 pack a day. For close to 30 years. Patient had a computed tomography scan of the abdomen done at an outside facility found to have 2-3 small abscess collection the pelvis with 1 small bubble of air in the left hemipelvis. It was felt patient had a complicated appendicitis with perforation. Patient was made nothing by mouth started on antibiotics IV fluids. Today-decreased abdominal pain. Diet is being advanced by surgery.. No nausea vomiting. Did pass some flatus. Review of systems: Was done for constitutional, cardiovascular, GI, pulmonary. relevant finding as above Active Medications Acetaminophen (Acetaminophen Tab 325 Mg Tab) 650 mg PO Q6HR [facility] Last Admin: 05/25/20 18:02 Dose: Not Given Documented by: Albuterol/Ipratropium (Ipratropium-Albuterol 3 Ml Neb) 3 ml INHALATION RT-QID [facility] Last Admin: 05/25/20 19:18 Dose: Not Given Documented by: Heparin Sodium (Porcine) (Heparin Sodium,Porcine 5,000 Unit/Ml 1 Ml Vial) 5,000 unit SQ Q8HR [facility] Last Admin: 05/25/20 16:34 Dose: Not Given Documented by: Hydromorphone HCl (Hydromorphone 1 Mg/Ml 1 Ml Syringe) 1 mg IVP Q4HR PRN PRN Reason: Pain Last Admin: 05/25/20 17:59 Dose: 1 mg Documented by: Piperacillin Sod/Tazobactam (Sod 3.375 gm/ Sodium Chloride) 100 mls @ 25 mls/hr IVPB Q8H [facility] Last Admin: 05/25/20 12:24 Dose: 25 mls/hr Documented by: Sodium Chloride (Saline 0.9%) 1,000 mls @ 130 mls/hr IV .Q7H42M [facility] Last Admin: 05/25/20 19:06 Dose: Not Given Documented by: Iopamidol (Iopamidol Contrast (Oral Use) Vial) 30 ml PO Q60M PRN PRN Reason: CT Scan Stop: 05/26/20 13:07 Ketorolac Tromethamine (Ketorolac 15 Mg/Ml 1 Ml Vial) 15 mg IVP Q6HR [facility] Stop: 05/27/20 16:43 Last Admin: 05/25/20 17:58 Dose: 15 mg Documented by: Lorazepam (Lorazepam 2 Mg/Ml Inj) 1 mg IV Q2HR PRN PRN Reason: CIWA 8 or 9 Last Admin: 05/25/20 16:49 Dose: 1 mg Documented by: Lorazepam (Lorazepam 2 Mg/Ml Inj) 1 mg IV Q1HR PRN PRN Reason: CIWA 10 to 15 Lorazepam (Lorazepam 2 Mg/Ml Inj) 2 mg IV Q10M PRN PRN Reason: CIWA 16 or higher Stop: 05/27/20 13:07 Lorazepam (Lorazepam 2 Mg/Ml Inj) 2 mg IV Q6HR PRN PRN Reason: Seizures Multivitamins (Multivitamins, Thera 1 Each Tab) 1 each PO DAILY@1200 NURY Naloxone HCl (Naloxone 0.4 Mg/Ml 1 Ml Vial) 0.2 mg IV Q2M PRN PRN Reason: Opioid Reversal Nicotine (Nicotine 21mg/24hr Patch) 1 patch TRANSDERM DAILY [facility] Last Admin: 05/25/20 08:50 Dose: 1 patch Documented by: Ondansetron HCl (Ondansetron 4 Mg/2 Ml Vial) 4 mg IVP Q8HR PRN PRN Reason: Nausea And Vomiting Last Admin: 05/22/20 21:05 Dose: 4 mg Documented by: Thiamine HCl (Thiamine 100 Mg Tab) 100 mg PO BID-W/MEALS [facility] Last Admin: 05/25/20 17:58 Dose: 100 mg Documented by: Physical examination: VITAL SIGNS: 98.3, 81, 18, 152/92, 96% room air GENERAL: BMI 19.4, laying in bed, comfortable, speaking on the phone EYES: Pupils equal. Conjunctiva normal. HEENT: External appearance of nose and ears normal, oral cavity grossly normal. NECK: JVD not raised; masses not palpable. HEART: First and second heart sounds are normal; no edema. LUNGS: Respiratory rate normal; clear to auscultation. ABDOMEN: Soft, lower abdominal tenderness, no guarding rigidity, liver spleen not palpable, no masses palpable. PSYCH: Alert and oriented x3; mood and affect normal INVESTIGATIONS, reviewed in the clinical context: White count 6.9 hemoglobin 10.9 Limited abdominal ultrasound-hepatic steatosis Admission testing White count and hemoglobin 12.9 platelets 174 potassium 4 bun 4 creatinine 0.46 AST 46 ALT 55 albumin 3.2 Assessment: -acute appendicitis complicated with likely abscess with perforation.-Clinically improving -COPD in a current smoker -Chronic nicotine dependence cigarette smoker -Chronic alcohol use disorder -Suspect alcoholic hepatitis -Hepatic steatosis -Hypoalbuminemia-reactive -DVT prophylaxis Plan: On IV Zosyn. add IV Flagyl. Continue the medical treatment plan. Continue with CIWA scale. Clinically improving Thank you Dr. Francis.
[2020-05-25 20:32] LABS: ALT 56 U/L (4-34); AST 89 U/L (14-36); African American GFR (CKD) >90 (>60 ml/min/1.73 sqM); Anion Gap 6 mmol/L; Blood Urea Nitrogen <2 mg/dL (7-17); Calcium 8.3 mg/dL (8.4-10.2); Carbon Dioxide 23 mmol/L (22-30); Chloride 104 mmol/L (98-107); GGT 142 U/L (12-43); Glucose 84 mg/dL (74-99); Magnesium 1.5 mg/dL (1.6-2.3); Non-African American GFR(CKD) >90 (>60 ml/min/1.73 sqM); Potassium 3.1 mmol/L (3.5-5.1); Sodium 133 mmol/L (137-145)
[2020-05-25] MEDS: metroNIDAZOLE-NS PMX 500 MG in SALINE 1 100ML.BAG IVPB SCH (20:42)
[2020-05-25] MEDS ORDERED: POTASSIUM CHLORIDE ER 20 MEQ TAB.ER PO STA (22:09)
[2020-05-25] MEDS: MAGNESIUM OXIDE 400 MG TAB PO SCH (22:21)
[2020-05-25 23:41] LABS: Appearance,Urine Clear (Clear); Bilirubin,Urine Negative (Negative); Blood,Urine Negative (Negative); Color,Urine Yellow; Glucose,Urine (UA) Negative (Negative); Ketones,Urine Trace (Negative); Leukocyte Esterase,Urine Small (Negative); Mucus,Urine Rare /hpf; Nitrite,Urine Negative (Negative); Protein,Urine Negative (Negative); RBC,Urine <1 /hpf (0-5); Specific Gravity,Urine 1.015 (1.001-1.035); Squamous Epithelial Cell,Urine 4 /hpf (0-4); Urobilinogen,Urine <2.0 mg/dL (<2.0); WBC,Urine 3 /hpf (0-5)
[2020-05-25 23:53] LABS: Amphetamine Screen,Urine Not Detected (NotDetected); Barbiturate Screen,Urine Not Detected (NotDetected); Benzodiazepines Screen,Urine Detected (NotDetected); Cocaine Screen,Urine Not Detected (NotDetected); Methadone Screen, Urine Not Detected (NotDetected); Opiate Screen,Urine Detected (NotDetected); Oxycodone Screen, Urine Not Detected (NotDetected); Phencyclidine Screen,Urine Not Detected (NotDetected); Tricyclic Antidepressant,Urine Not Detected (NotDetected); Urn Cannabinoid Scrn Detected (NotDetected)
[2020-05-26] MEDS: LORazepam 2 MG/ML INJ IV PRN (00:45)
[2020-05-26] MEDS: SODIUM CHLORIDE 0.9% 1,000 ML IV SCH ×3 (02:13→17:11)
[2020-05-26] MEDS: PIPERACILLIN-TAZOBACTAM 3.375 GM in SODIUM CHLORIDE 0.9% 100 ML IVPB SCH ×3 (03:23→21:39)
[2020-05-26] MEDS: metroNIDAZOLE-NS PMX 500 MG in SALINE 1 100ML.BAG IVPB SCH ×4 (03:23→21:48)
[2020-05-26] MEDS: ACETAMINOPHEN TAB 325 MG TAB PO SCH ×3 (05:51→13:14)
[2020-05-26] MEDS: HYDROmorphone 1 MG/ML 1 ML SYRINGE IVP PRN ×2 (06:00→12:02)
[2020-05-26] MEDS: KETOROLAC 15 MG/ML 1 ML VIAL IVP SCH ×3 (06:01→17:10)
[2020-05-26] MEDS: HEPARIN SODIUM,PORCINE 5,000 UNIT/ML 1 ML VIAL SQ SCH ×2 (07:26→13:14)
[2020-05-26] MEDS: NICOTINE 21MG/24HR PATCH TRANSDERM SCH (08:21)
[2020-05-26] MEDS: IPRATROPIUM-ALBUTEROL 3 ML NEB INHALATION SCH ×4 (08:40→19:25)
[2020-05-26] MEDS: THIAMINE 100 MG TAB PO SCH ×2 (09:34→17:10)
[2020-05-26] MEDS: MAGNESIUM OXIDE 400 MG TAB PO SCH ×2 (09:35→21:48)
--- NOTE | 2020-05-26 10:10 | P.PN ---
Subjective Progress Note Date: 05/26/20 Principal diagnosis: Appendiceal abscess Patient says she is feeling better. She states she wants to go home. She did have a bowel movement today. Tolerating regular diet. Appetite remains diminished. She is ambulating. Repeat CAT scan was performed today. Awaiting official dictation. Appearance of pelvic abscesses similar. Largest abscess measuring approximately 2 cm. No large volume free intraperitoneal air Objective - Vital Signs Vital signs: Vital Signs Temp 98.0 F 05/26/20 07:00 Pulse 80 05/26/20 07:00 Resp 18 05/26/20 07:00 BP 152/94 05/26/20 07:00 Pulse Ox 96 05/26/20 07:00 Intake & Output 05/25/20 05/26/20 05/26/20 18:59 06:59 18:59 Intake Total 1040 500 Balance 1040 500 Intake: IV 1040 Sodium Chloride 0.9% 1, 1040 000 ml @ 130 mls/hr IV . Q7H42M [facility] Rx#:[id number] Oral 500 Other: Voiding Method Toilet Toilet Toilet # Voids 1 - Exam Abdomen: Soft, nondistended, mild right lower quadrant tenderness definitely improved from Tuesday, no peritoneal signs - Labs CBC & Chem 7: 05/25/20 05:50 05/25/20 05:50 Labs: Abnormal Lab Results - Last 24 Hours (Table) 05/25/20 05/25/20 05/25/20 Range/Units 05:50 23:20 23:20 Sodium 133 L (137-145) mmol/L Potassium 3.1 L (3.5-5.1) mmol/L BUN <2 L (7-17) mg/dL Creatinine 0.36 L (0.52-1.04) mg/dL Calcium 8.3 L (8.4-10.2) mg/dL Magnesium 1.5 L (1.6-2.3) mg/dL GGT 142 H (12-43) U/L AST 89 H (14-36) U/L ALT 56 H (4-34) U/L Urine Ketones Trace H (Negative) Ur Leukocyte Esterase Small H (Negative) Urine Mucus Rare H (None) /hpf Urine Opiates Screen Detected H (NotDetected) U Benzodiazepines Scrn Detected H (NotDetected) U Marijuana (THC) Screen Detected H (NotDetected) Assessment and Plan (1) Appendicitis with peritoneal abscess Narrative/Plan: 44-year-old female with evidence of ruptured appendicitis with periappendiceal and left lower quadrant abscess collections. Patient clinically improved. CAT scan findings without significant changes. Await official dictation. Anticipate home soon with IV antibiotics and repeat computed tomography scan 2-3 weeks. Patient is agreeable to that plan at this time. Current Visit: Yes Status: Acute Code(s): K35.33 - ACUTE APPENDICITIS WITH PERF AND LOC PERITONITIS, WITH ABSCS SNOMED Code(s): 68157859
--- NOTE | 2020-05-26 10:58 | CT ---
EXAMINATION TYPE: CT abdomen pelvis w con DATE OF EXAM: 05/26/2020 COMPARISON: Prior CT 05/22/2020 HISTORY: Pelvic abscess CT DLP: 716.4 mGycm Automated exposure control for dose reduction was used. TECHNIQUE: Helical acquisition of images from the lung bases through the pelvis have been completed. CONTRAST: Performed with Oral Contrast and with IV Contrast, patient injected with 100 mL of Isovue 300. FINDINGS: Due to timing of the scan, contrast has not coursed distally within the small bowel and col on LUNG BASES: There is a posterior basilar atelectatic changes. There may be minimal effusion. AORTA: No significant abnormality is appreciated. LIVER/GB: Liver is enlarged, likely there is hepatic steatosis, there is low-attenuation, gallbladder is surgically absent. PANCREAS: No significant abnormality is seen. SPLEEN: No significant abnormality is seen. ADRENALS: No significant abnormality is seen. KIDNEYS: Nonobstructive calculus is present within the lower pole of the left kidney measuring approx imately 6 to 7 mm REPRODUCTIVE ORGANS: No significant abnormality is seen BOWEL: There is a multiseptated focus along the level of the sigmoid colon, axial image #61 which sh ows a thickened enhancing wall and measures approximately 2.2 cm x 2 cm x 1.6 cm with some surroundin g inflammatory change. Along the anterior abdomen inferiorly towards the right of midline there is an additional low dense area measuring 5 cm in cephalad to caudal dimension by 2.2 cm x 2 cm in AP dime nsion which is somewhat hourglass in configuration with a smaller focus immediately posterior measuri ng only 14 mm with similar characteristics, axial image #52, coronal image #21. Question underlying c olitis, there is colonic wall thickening in the sigmoid region FREE AIR: No Free Air visible. ASCITES: Small amount of free fluid is present in the pelvis. PELVIC ADENOPATHY: None visualized. RETROPERITONEAL ADENOPATHY: No Retroperitoneal Adenopathy visible. URINARY BLADDER: No significant abnormality is seen. OSSEOUS STRUCTURES: No significant abnormality is seen. IMPRESSION: MULTILOCULAR FOCI WITHIN THE ANTERIOR LOWER ABDOMEN CONSISTENT WITH MULTIPLE SMALL ABSCESSES DESCR IBED
[2020-05-26] MEDS: MULTIVITAMINS, THERA 1 EACH TAB PO SCH (12:01)
[2020-05-26 12:59] LABS: Basophils # (A) 0.1 k/uL (0-0.2); Basophils % (A) 1 %; Eosinophils # (A) 0.1 k/uL (0-0.7); Eosinophils % (A) 1 %; HCT 37.4 % (34.0-46.0); HGB 12.1 gm/dL (11.4-16.0); Lymphocytes # (A) 0.7 k/uL (1.0-4.8); Lymphocytes % (A) 9 %; MCH 31.9 pg (25.0-35.0); MCHC 32.3 g/dL (31.0-37.0); MCV 98.9 fL (80.0-100.0); Mean Platelet Volume 8.4; Monocytes # (A) 0.7 k/uL (0-1.0); Monocytes % (A) 9 %; Neutrophils # (A) 6.1 k/uL (1.3-7.7); Neutrophils % (A) 78 %; Platelet Count 192 k/uL (150-450); RBC 3.78 m/uL (3.80-5.40); RDW 12.7 % (11.5-15.5); WBC 7.8 k/uL (3.8-10.6)
--- NOTE | 2020-05-26 13:55 | PN ---
PROGRESS NOTE DATE OF SERVICE: 05/26/2020 REASON FOR FOLLOWUP: Central abdominal abscess. INTERVAL HISTORY: The patient is currently afebrile. Patient is feeling better. Breathing comfortably. Still complaining of pain to the right lower abdominal area. No nausea, no vomiting. No diarrhea. PHYSICAL EXAMINATION: Blood pressure 150/94 with a pulse of 80, temperature 98. She is 96% on room air. General description is a middle-aged female, lying in bed in no distress. RESPIRATORY SYSTEM: Unlabored breathing, clear to auscultation anteriorly. HEART: S1, S2. Regular rate and rhythm. ABDOMEN: Soft, mildly tender, no guarding, no rigidity. LABS: Hemoglobin is 12.8, white count 7.8. Urine is negative. Urine drug screen positive for opiates, benzos and marijuana. CT of abdomen and pelvis this morning did show focused on the level of sigmoid colon. DIAGNOSTIC IMPRESSION AND PLAN: Patient admitted to the hospital with abdominal pain with initial concern for possible ruptured appendicitis. CT today is showing mostly sigmoid colon small abscesses. Currently on Zosyn. Will try to get outpatient antibiotic arrangement in the form of Invanz 1 g daily for 2 weeks and close outpatient followup. MMODL / IJN: [id number] /
--- NOTE | 2020-05-26 17:44 | P.PN ---
Progress Note - Text Progress Note Date: 05/26/20 - Chief Complaint Abdominal pain History of presenting complaint: This is a pleasant 44-year-old patient of . Patient is noticed some abdominal discomfort for close to 2 weeks. Last 4 days noted increasing pain in the right lower quadrant. Started having nausea vomiting also felt hot and cold. Normally has a bowel movement every day. For last 4 days has not had a bowel movement. Patient also long-standing smoker and drinks 12 pack a day. For close to 30 years. Patient had a computed tomography scan of the abdomen done at an outside facility found to have 2-3 small abscess collection the pelvis with 1 small bubble of air in the left hemipelvis. It was felt patient had a complicated appendicitis with perforation. Hospital course: Patient was made nothing by mouth started on IV fluids, IV Zosyn and IV Flagyl. Diet has been advanced. Today-abdominal pain is better but present. No nausea vomiting.toleratingabout 50% of her meals.no bowel movement. passed flatus. Has been out of bed.repeat computed tomography scan of the abdomen done. Review of systems: Was done for constitutional, cardiovascular, GI, pulmonary. relevant finding as above Active Medications Acetaminophen (Acetaminophen Tab 325 Mg Tab) 650 mg PO Q6HR [facility] Last Admin: 05/26/20 13:14 Dose: Not Given Documented by: Albuterol/Ipratropium (Ipratropium-Albuterol 3 Ml Neb) 3 ml INHALATION RT-QID [facility] Last Admin: 05/26/20 15:40 Dose: Not Given Documented by: Heparin Sodium (Porcine) (Heparin Sodium,Porcine 5,000 Unit/Ml 1 Ml Vial) 5,000 unit SQ Q8HR [facility] Last Admin: 05/26/20 13:14 Dose: Not Given Documented by: Hydromorphone HCl (Hydromorphone 1 Mg/Ml 1 Ml Syringe) 1 mg IVP Q4HR PRN PRN Reason: Pain Last Admin: 05/26/20 12:02 Dose: 1 mg Documented by: Piperacillin Sod/Tazobactam (Sod 3.375 gm/ Sodium Chloride) 100 mls @ 25 mls/hr IVPB Q8H [facility] Last Admin: 05/26/20 12:01 Dose: 25 mls/hr Documented by: Sodium Chloride (Saline 0.9%) 1,000 mls @ 130 mls/hr IV .Q7H42M [facility] Last Admin: 05/26/20 17:11 Dose: 130 mls/hr Documented by: Metronidazole 500 mg/ IV (Solution) 100 mls @ 100 mls/hr IVPB Q6H [facility] Last Admin: 05/26/20 14:33 Dose: 100 mls/hr Documented by: Ketorolac Tromethamine (Ketorolac 15 Mg/Ml 1 Ml Vial) 15 mg IVP Q6HR [facility] Stop: 05/27/20 16:43 Last Admin: 05/26/20 17:10 Dose: 15 mg Documented by: Lorazepam (Lorazepam 2 Mg/Ml Inj) 1 mg IV Q2HR PRN PRN Reason: CIWA 8 or 9 Last Admin: 05/26/20 00:45 Dose: 1 mg Documented by: Lorazepam (Lorazepam 2 Mg/Ml Inj) 1 mg IV Q1HR PRN PRN Reason: CIWA 10 to 15 Lorazepam (Lorazepam 2 Mg/Ml Inj) 2 mg IV Q10M PRN PRN Reason: CIWA 16 or higher Stop: 05/27/20 13:07 Lorazepam (Lorazepam 2 Mg/Ml Inj) 2 mg IV Q6HR PRN PRN Reason: Seizures Magnesium Oxide (Magnesium Oxide 400 Mg Tab) 200 mg PO BID [facility] Last Admin: 05/26/20 09:35 Dose: 200 mg Documented by: Multivitamins (Multivitamins, Thera 1 Each Tab) 1 each PO DAILY@1200 [facility] Last Admin: 05/26/20 12:01 Dose: 1 each Documented by: Naloxone HCl (Naloxone 0.4 Mg/Ml 1 Ml Vial) 0.2 mg IV Q2M PRN PRN Reason: Opioid Reversal Nicotine (Nicotine 21mg/24hr Patch) 1 patch TRANSDERM DAILY [facility] Last Admin: 05/26/20 08:21 Dose: 1 patch Documented by: Ondansetron HCl (Ondansetron 4 Mg/2 Ml Vial) 4 mg IVP Q8HR PRN PRN Reason: Nausea And Vomiting Last Admin: 05/22/20 21:05 Dose: 4 mg Documented by: Thiamine HCl (Thiamine 100 Mg Tab) 100 mg PO BID-W/MEALS [facility] Last Admin: 05/26/20 17:10 Dose: 100 mg Documented by: Physical examination: VITAL SIGNS: 98.2, 71, 18, 154/94, 99% room air GENERAL:sitting up on the bed, not in distress EYES: Pupils equal. Conjunctiva normal. HEENT: External appearance of nose and ears normal, oral cavity grossly normal. NECK: JVD not raised; masses not palpable. HEART: First and second heart sounds are normal; no edema. LUNGS: Respiratory rate normal; clear to auscultation. ABDOMEN: Soft, lower abdominal tenderness, no guarding rigidity, liver spleen not palpable, no masses palpable. PSYCH: Alert and oriented x3; mood and affect normal INVESTIGATIONS, reviewed in the clinical context: white count 7.8 hemoglobin 12.1 computed tomography scan of the abdomen-RT locular foci consistent with multiple small abscesses. Admission testing White count and hemoglobin 12.9 platelets 174 potassium 4 bun 4 creatinine 0.46 AST 46 ALT 55 albumin 3.2 Limited abdominal ultrasound-hepatic steatosis Assessment: -acute appendicitis complicated with multiple local abscess with perforation.no free air.-some improvement. No guarding rigidity. -COPD in a current smoker -Chronic nicotine dependence cigarette smoker -Chronic alcohol use disorder -Suspect alcoholic hepatitis -Hepatic steatosis -Hypoalbuminemia-reactive -DVT prophylaxis Plan: On IV Zosyn. add IV Flagyl. Continue the medical treatment plan. I will discuss with Dr. Francis. Patient probably need home IV antibiotics if managed conservatively. Discussed with the patient. Thank you Dr. Francis.
[2020-05-27] MEDS: KETOROLAC 15 MG/ML 1 ML VIAL IVP SCH ×3 (00:22→12:20)
[2020-05-27] MEDS: HEPARIN SODIUM,PORCINE 5,000 UNIT/ML 1 ML VIAL SQ SCH ×3 (00:26→13:13)
[2020-05-27] MEDS: ACETAMINOPHEN TAB 325 MG TAB PO SCH ×3 (00:26→07:39)
[2020-05-27] MEDS: HYDROmorphone 1 MG/ML 1 ML SYRINGE IVP PRN (01:18)
[2020-05-27] MEDS: SODIUM CHLORIDE 0.9% 1,000 ML IV SCH ×3 (01:55→14:27)
[2020-05-27] MEDS: LORazepam 2 MG/ML INJ IV PRN ×2 (01:56→07:35)
[2020-05-27] MEDS: metroNIDAZOLE-NS PMX 500 MG in SALINE 1 100ML.BAG IVPB SCH ×2 (01:56→07:33)
[2020-05-27] MEDS: PIPERACILLIN-TAZOBACTAM 3.375 GM in SODIUM CHLORIDE 0.9% 100 ML IVPB SCH (05:18)
[2020-05-27] MEDS: THIAMINE 100 MG TAB PO SCH (07:32)
[2020-05-27] MEDS: MAGNESIUM OXIDE 400 MG TAB PO SCH (07:32)
[2020-05-27] MEDS: NICOTINE 21MG/24HR PATCH TRANSDERM SCH (07:32)
[2020-05-27 08:16] VITALS: BP 146/103; RESP 17; TEMP 98
[2020-05-27] MEDS: IPRATROPIUM-ALBUTEROL 3 ML NEB INHALATION SCH ×2 (09:02→11:56)
[2020-05-27 09:56] LABS: African American GFR (CKD) 146.8 (60.0-200.0); Blood Urea Nitrogen <5.0 mg/dL (9.0-27.0); Calcium 8.7 mg/dL (8.7-10.3); Carbon Dioxide 26.7 mmol/L (21.6-31.8); Chloride 100 mmol/L (96-109); Glucose 88 mg/dL (70-110); Non-African American GFR(CKD) 126.7 (60.0-200.0); Potassium 3.4 mmol/L (3.5-5.5); Sodium 136 mmol/L (135-145)
[2020-05-27] MEDS ORDERED: ERTAPENEM 1 GM in SODIUM CHLORIDE 0.9% 50 ML IVPB STA (10:52)
[2020-05-27 12:07] VITALS: PULSE 99
[2020-05-27] MEDS: MULTIVITAMINS, THERA 1 EACH TAB PO SCH (12:20)
--- NOTE | 2020-05-27 14:07 | P.DS ---
<Ambar Meadows - Last Filed: 05/27/20 14:00> Providers Expected date of discharge: 05/27/20 Hospital Course: Discharge diagnosis 1. Appendicitis with peritoneal abscess Hospital course 44-year-old female transferred from an outside institution after having complaints of abdominal pain for the last 1-2 weeks. Patient says that she was having lower abdominal pain starting about 1-2 weeks ago. Gradually increasing in severity and now primarily located in the right lower quadrant. Appetite has been diminished. Patient states she did feel febrile at times. Described anorexia and intermittent nausea and vomiting. When thinking back the patient states that she has had some occasional episodes of diarrhea and nausea and vomiting for the last few months. Diarrhea would be 3-4 times per day at its most severe. Patient comes with an outside CAT scan showing a enhancing appendix, no appendicolith, 2-3 small abscess collections in the pelvis 1 with a small bubble of air in the left hemipelvis. Etiology thought to be related to complicated appendicitis with perforation. Patient was started on IV antibiotics. She was seen by infectious disease. Repeat computed tomography scan of the abdomen had shown multilocular foci within the anterior lower abdomen consistent with multiple small abscesses. Patient has been treated with IV antibiotics. We will continue IV Invanz for 2 more weeks in the outpatient setting. Patient is tolerating diet. She's afebrile. She is having bowel movements. Pain is controlled. She is stable for discharge. Physician Project Planner note has been reviewed by physician. Signing provider agrees with the documented findings, assessment, and plan of care. Patient Condition at Discharge: Stable Plan - Discharge Summary Discharge Rx Participant: Yes New Discharge Prescriptions: New Ertapenem [INVanz] 1 gm IVPB Q24H #14 bag Disulfiram 500 mg PO DIRECTED #30 tablet Nicotine 21Mg/24Hr Patch [Habitrol] 1 patch TRANSDERM DAILY #14 patch Multivitamins, Thera [Multivitamin (formulary)] 1 each PO DAILY@1200 #30 tab Thiamine [Vitamin B-1] 100 mg PO BID-W/MEALS #30 tab Docusate [Colace] 100 mg PO BID #30 capsule traMADol HCL [Ultram] 100 mg PO Q6HR PRN 3 Days #24 tab PRN Reason: Pain Continue Umeclidinium [place] [Incruse Ellipta] 1 puff INHALATION RT-DAILY Glycopyrrolate/Formoterol Fum [Bevespi Aerosphere Inhaler] 1 puff INHALATION RT-BID Discharge Medication List Glycopyrrolate/Formoterol Fum [Bevespi Aerosphere Inhaler] 1 puff INHALATION RT- BID 05/22/20 [History] Umeclidinium [place] [Incruse Ellipta] 1 puff INHALATION RT-DAILY 05/22/20 [History] Disulfiram 500 mg PO DIRECTED #30 tablet 05/27/20 [Rx] Docusate [Colace] 100 mg PO BID #30 capsule 05/27/20 [Rx] Ertapenem [INVanz] 1 gm IVPB Q24H #14 bag 05/27/20 [Rx] Multivitamins, Thera [Multivitamin (formulary)] 1 each PO DAILY@1200 #30 tab 05/27/20 [Rx] Nicotine 21Mg/24Hr Patch [Habitrol] 1 patch TRANSDERM DAILY #14 patch 05/27/20 [Rx] Thiamine [Vitamin B-1] 100 mg PO BID-W/MEALS #30 tab 05/27/20 [Rx] traMADol HCL [Ultram] 100 mg PO Q6HR PRN 3 Days #24 tab 05/27/20 [Rx] Follow up Appointment(s)/Referral(s): [facility], [NON-STAFF] - Michael Marcus MD [Primary Care Provider] - 1-2 days Keith Perry MD [STAFF PHYSICIAN] - 1 Week Ambulatory/Diagnostic Orders: Basic Metabolic Panel [LAB.AMB] Location: None Selected C Reactive Protein [LAB.AMB] Location: None Selected Complete Blood Count w/diff [LAB.AMB] Location: None Selected Erythrocyte Sedimentation Rate [LAB.AMB] Location: None Selected Patient Instructions/Handouts: Appendicitis (GEN), Pain Management (DC), How to Care for Your Midline Catheter (DC) Activity/Diet/Wound Care/Special Instructions: *[facility] will deliver IV antibiotic supplies tonight. They will call you first. Their phone number is [phone]. [facility] will call you and set up a visit for tomorrow to begin teaching you about the IV antibiotics and to give you the first infusion. DC HOME WITH IV ABX AND REPEAT CT SCAN IN 2-3 WEEKS *Awaiting to hear about insurance coverage at [facility] for in home IV antibiotics: No driving while taking [place] No lifting over 10 pounds You may shower. No soaking or tub baths for 2 weeks Very light activity until you are reevaluated at your follow up appointment with your surgeon Diet regular Discharge Disposition: HOME WITH HOME HEALTH SERVICES <Arnie Bautista - Last Filed: 05/27/20 17:59> Providers Date of admission: 05/22/20 20:48 Attending physician: Arnie Bautista Consults: 05/22/20 21:30 Consult Physician Stat Consulting Provider: Keith Perry Consult Reason/Comments: Ruptured Appendicitis Do you want consulting provider notified?: Yes 05/23/20 17:48 Consult Physician Routine Consulting Provider: José Patel Consult Reason/Comments: medical management Do you want consulting provider notified?: Yes Primary care physician: Michael Marcus - Discharge Diagnosis(es) (1) Appendicitis with peritoneal abscess Status: Acute Hospital Course: As above. Patient doing well today. Will plan discharge if midline placed on IV antibiotics. Patient will follow-up in 1 week.
--- NOTE | 2020-05-27 14:49 | PN ---
PROGRESS NOTE DATE OF SERVICE: 05/27/2020 REASON FOR FOLLOWUP: Ruptured appendicitis with abscess. INTERVAL HISTORY: Patient is currently afebrile. The patient is feeling better. Breathing comfortably. Abdominal pain is high when in use and intensity. No chest pain, shortness of breath. No nausea. No vomiting or diarrhea. PHYSICAL EXAMINATION: Blood pressure 146/100 with a pulse of 89, temperature 98, he is 97% on room air. General description is a middle-aged male, lying in bed in no distress. RESPIRATORY SYSTEM: Unlabored breathing, clear to auscultation anteriorly. HEART: S1, S2. Regular rate and rhythm. ABDOMEN: Soft, nontender. No guarding or rigidity. LABS: White count 7.8, creatinine 0.4. DIAGNOSTIC IMPRESSION AND PLAN: Patient with ruptured appendicitis with small abscess. The patient is covered with Zosyn, will be switched over to Invanz 1 g daily. She will continue outpatient for 2 weeks with a repeat CAT scan at that time before stopping antibiotics. Questions and concerns were answered. MMODL / IJN: [id number] /
--- NOTE | 2020-05-28 22:36 | P.PN ---
Progress Note - Text Progress Note Date: 05/27/20 - Chief Complaint Abdominal pain History of presenting complaint: This is a pleasant 44-year-old patient of . Patient is noticed some abdominal discomfort for close to 2 weeks. Last 4 days noted increasing pain in the right lower quadrant. Started having nausea vomiting also felt hot and cold. Normally has a bowel movement every day. For last 4 days has not had a bowel movement. Patient also long-standing smoker and drinks 12 pack a day. For close to 30 years. Patient had a computed tomography scan of the abdomen done at an outside facility found to have 2-3 small abscess collection the pelvis with 1 small bubble of air in the left hemipelvis. It was felt patient had a complicated appendicitis with perforation. Hospital course: Patient was made nothing by mouth started on IV fluids, IV Zosyn and IV Flagyl. Diet has been advanced. Results of this repeat computed tomography scan discussed with Dr. Francis. He thinks it's all from appendix perforation. We agreed the patient should continue on IV antibiotics for now. Today-tolerating diet. Had a bowel movement. Abdominal pain is better. No fever no chills. Getting a PICC line. Antibiotics per Dr. Velez. Review of systems: Was done for constitutional, cardiovascular, GI, pulmonary. relevant finding as above Current medications reviewed in today's electronic records Physical examination: VITAL SIGNS: 98, 89, 17, 146/103, 97% on room air GENERAL:sitting up on window seat, comfortable EYES: Pupils equal. Conjunctiva normal. HEENT: External appearance of nose and ears normal, oral cavity grossly normal. NECK: JVD not raised; masses not palpable. HEART: First and second heart sounds are normal; no edema. LUNGS: Respiratory rate normal; clear to auscultation. ABDOMEN: Soft, decreased abdominal tenderness, no guarding rigidity, liver spleen not palpable, no masses palpable. PSYCH: Alert and oriented x3; mood and affect normal INVESTIGATIONS, reviewed in the clinical context: white count 7.8 hemoglobin 12.1 computed tomography scan of the abdomen-RT locular foci consistent with multiple small abscesses. Admission testing White count and hemoglobin 12.9 platelets 174 potassium 4 bun 4 creatinine 0.46 AST 46 ALT 55 albumin 3.2 Limited abdominal ultrasound-hepatic steatosis Assessment: -acute appendicitis complicated with multiple local abscess with perforation.no free air.-Improving -COPD in a current smoker -Chronic nicotine dependence cigarette smoker -Chronic alcohol use disorder -Suspect alcoholic hepatitis -Hepatic steatosis -Hypoalbuminemia-reactive -DVT prophylaxis Plan: Patient been discharged on Invanz per ID. Care was discussed with the patient. Patient also been prescribed disulfiram for alcohol and nicotine patch. Follow with PCP. Thank you Dr. Francis.
== END 2020-05-27 15:27 | disposition home health service (06) | DRG 372 ==
LOC: EC 20:20 → 4SSUR 20:48
PROVIDERS: ADMIT Surgery; ATTEND Surgery
PROC: 05HC33Z Insertion of Infusion Device into Left Basilic Vein, Percutaneous Approach (ICD-10-PCS; principal; 2020-05-27 12:50)
DX: K35.33 Acute appendicitis with perforation, localized peritonitis, and gangrene, with abscess (principal); F10.239 Alcohol dependence with withdrawal, unspecified; K70.10 Alcoholic hepatitis without ascites; F32.9 Major depressive disorder, single episode, unspecified; F17.210 Nicotine dependence, cigarettes, uncomplicated; J44.9 Chronic obstructive pulmonary disease, unspecified; E88.09 Other disorders of plasma-protein metabolism, not elsewhere classified; K76.0 Fatty (change of) liver, not elsewhere classified; Z79.82 Long term (current) use of aspirin; Z88.4 Allergy status to anesthetic agent; Z90.49 Acquired absence of other specified parts of digestive tract; Z90.89 Acquired absence of other organs; Z98.890 Other specified postprocedural states; Z98.51 Tubal ligation status
CPT/HCPCS: 36410; 74177; 76705; 76937; 80048; 80053; 80306; 80320; 81001; 82977; 83735; 84145; 84450; 84460; 85025; 85610; 86850; 86900; 86901; 94640; 96374; 99285

== ENCOUNTER → 2020-06-10 | Outpatient (CLI) | payer OTHER ==
[2020-06-10 09:46] LABS: African American GFR (CKD) >90 (>60 ml/min/1.73 sqM); Blood Urea Nitrogen <2 mg/dL (7-17); Non-African American GFR(CKD) >90 (>60 ml/min/1.73 sqM)
--- NOTE | 2020-06-10 12:19 | CT ---
EXAMINATION TYPE: CT abdomen pelvis w con DATE OF EXAM: 06/10/2020 COMPARISON: 05/26/2020 INDICATION: Ruptured appendicitis w/ abscess DLP: 463.9 mGycm, Automated exposure control for dose reduction was used. CONTRAST: 100 mL of Isovue 300. Study performed with Oral Contrast TECHNIQUE: Axial images were obtained from above the diaphragm to the pubic rami in the axial plane a t 5 mm thick sections. Reconstructed images are reviewed on the computer in the coronal plane. FINDINGS: Limited CT sections are obtained the lung bases. Some minimal linear opacifications in the posterior lateral right lung base may be some scarring or atelectasis.. CT ABDOMEN: Liver: Normal Spleen: Normal Pancreas: Normal Adrenal glands: The adrenal glands are normal. Gallbladder: Surgically absent Kidneys: No masses are evident. No hydronephrosis is present. No cysts are present. Delayed images were obtained through the kidneys, which remain unremarkable. Aorta: Vascular calcification is within the aorta. Inferior vena cava: Normal. CT PELVIS: There is some prominence of mid abdominal small bowel loops. Oral contrast extends to distal small abdirashid wel loops. There are loops of bowel which are incompletely distended or lack oral contrast limiting t heir evaluation. Within the right lower quadrant is a 0.6 cm hypodense collection. Series 3 image 60. This appears to been present previously. The additional previous suspected abscesses have resolved. The colon is deco mpressed. The appendix is not clearly identified. Urinary bladder: Normal. Genitourinary structures: Uterus is normal. Adnexal regions appear within normal limits. This low-den sity collection discussed above could be related to the right ovary. Osseous structures: No suspicious lytic or sclerotic lesions. IMPRESSIONS: 1. Previous right lower quadrant low density collections suspicious for abscess have largely resolve d. There is a stable 0.9 cm hypodense collection which is nonspecific. A small residual stable absces s could be considered. This is in the right adnexal region and could be related to the right ovary. 2. The appendix is not discretely identified.
== END | disposition home or self-care (01) ==
LOC: RADPROMAIN 07:58
PROVIDERS: ATTEND Internal Medicine Infectious Disease
DX: K35.33 Acute appendicitis with perforation, localized peritonitis, and gangrene, with abscess (principal)
CPT/HCPCS: 82565; 84520; 74177; 36415; Q9967

== ENCOUNTER 2024-01-07 13:09 | Observation (INO) | payer OTHER ==
[2024-01-07 13:59] LABS: INR 0.9 (<1.2); Partial Thromboplastin Time 25.7 sec (22.0-30.0); Prothrombin Time 10.4 sec (10.0-12.5)
[2024-01-07 14:01] LABS: ALT 39 U/L (4-34); AST 66 U/L (14-36); African American GFR (CKD) >90 (>60 ml/min/1.73 sqM); Albumin 4.2 g/dL (3.5-5.0); Alkaline Phosphatase 86 U/L (38-126); Anion Gap 10 mmol/L; Blood Urea Nitrogen 6 mg/dL (7-17); Calcium 9.5 mg/dL (8.4-10.2); Carbon Dioxide 23 mmol/L (22-30); Chloride 101 mmol/L (98-107); Glucose 83 mg/dL (74-99); Magnesium 1.9 mg/dL (1.6-2.3); Non-African American GFR(CKD) >90 (>60 ml/min/1.73 sqM); Potassium 4.7 mmol/L (3.5-5.1); Sodium 134 mmol/L (137-145); Total Bilirubin 1.2 mg/dL (0.2-1.3); Total Protein 7.1 g/dL (6.3-8.2)
[2024-01-07 14:41] LABS: Basophils % (A) 1 %; Eosinophils # (A) 0.1 k/uL (0-0.7); Eosinophils % (A) 1 %; HCT 43.6 % (34.0-46.0); HGB 14.5 gm/dL (11.4-16.0); Lymphocytes # (A) 1.1 k/uL (1.0-4.8); Lymphocytes % (A) 16 %; MCH 32.6 pg (25.0-35.0); MCHC 33.3 g/dL (31.0-37.0); MCV 97.9 fL (80.0-100.0); Mean Platelet Volume 9.5; Monocytes # (A) 0.8 k/uL (0-1.0); Monocytes % (A) 11 %; Neutrophils # (A) 5.1 k/uL (1.3-7.7); Neutrophils % (A) 71 %; Platelet Count 196 k/uL (150-450); RBC 4.46 m/uL (3.80-5.40); RDW 13.2 % (11.5-15.5); WBC 7.3 k/uL (3.8-10.6)
--- NOTE | 2024-01-07 15:16 | XR ---
EXAMINATION TYPE: XR chest 2V DATE OF EXAM: 01/07/2024 COMPARISON: 05/22/2013 INDICATION: Chest pain TECHNIQUE: Frontal and lateral views of the chest are obtained. FINDINGS: The heart size is normal. The pulmonary vasculature is normal. The lungs are clear. IMPRESSION: 1. No acute pulmonary process.
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
[2024-01-07] MEDS: NICOTINE 21MG/24HR PATCH TRANSDERM STA (16:01)
[2024-01-07] MEDS: KETOROLAC 15 MG/ML 1 ML VIAL IVP STA (16:04)
[2024-01-07] MEDS: LORazepam 2 MG/ML INJ IV STA (16:05)
[2024-01-07] MEDS: DEXAMETHASONE SOD PHOSPHATE 10 MG/ML 1 ML VIAL IV STA (16:06)
[2024-01-07] MEDS: IPRATROPIUM-ALBUTEROL 3 ML NEB INHALATION STA (16:37)
[2024-01-07] MEDS ORDERED: NITROGLYCERIN SL TABS 0.4 MG TAB SUBLINGUAL PRN (16:56)
[2024-01-07] MEDS ORDERED: LORazepam 2 MG/ML INJ IV PRN ×2 (16:57)
[2024-01-07] MEDS: THIAMINE 100 MG/ML 2 ML VIAL IM STA (18:44)
[2024-01-07] MEDS: ASPIRIN 81 MG PO STA (18:51)
--- NOTE | 2024-01-07 19:21 | CT ---
CTA CHEST EXAMINATION TYPE: CT angio chest DATE OF EXAM: 01/07/2024 INDICATION: pe CT DLP: 461.4 mGycm, Automated exposure control for dose reduction was used. CONTRAST: Patient injected with 80 mL of Isovue 370. COMPARISON: None TECHNIQUE: CT of the chest is performed on a spiral scan at 2 mm thick sections. Study is performed with intravenous contrast timed for evaluation for pulmonary embolism. This will limit additional po rtions of the evaluation. 3-D MIP images reconstructed by the technologist are reviewed on the compu ter in the coronal and sagittal planes. FINDINGS: No persistent filling defects are evident to suggest an acute pulmonary embolism. No mediastinal or hilar adenopathy enlarged by CT criteria is evident. The ascending aorta diameter at the level of the main pulmonary artery is 2.8 cm. The main pulmonary artery diameter at the bifurcation is 2.7 cm. Minimal linear atelectasis in the posterior right lung base. No suspicious focal consolidations are o therwise apparent. There is a small hypodensity within the right lobe of the thyroid. Limited CT sections were through the upper abdomen. Upper abdomen appears unremarkable. IMPRESSION: 1. No acute pulmonary process. 2. Minimal atelectasis right lung base. Lungs otherwise appear clear.
[2024-01-07] MEDS ORDERED: ALBUTEROL NEBULIZED 2.5 MG/3 ML INHALATION PRN (19:29)
[2024-01-07] MEDS: HYDROcodone/APAP 5-325MG 1 EACH TAB PO PRN (21:37)
[2024-01-07] MEDS: LORazepam 2 MG/ML INJ IV PRN (21:37)
[2024-01-07] MEDS: SYMBICORT 160-4.5 MCG INHALER INHALATION SCH (21:56)
[2024-01-08] MEDS: methocarbamoL 750 MG TAB PO PRN (03:22)
[2024-01-08] MEDS: hydrOXYzine HCL 25 MG TAB PO PRN (03:22)
[2024-01-08] MEDS ORDERED: LORazepam 1 MG/0.5 ML VIAL IV PRN (06:06)
[2024-01-08] MEDS: LORazepam 1 MG/0.5 ML VIAL IV PRN ×2 (06:10→14:35)
[2024-01-08] MEDS: IPRATROPIUM 0.5 MG/2.5 ML NEBU INHALATION SCH (07:48)
[2024-01-08] MEDS: LIDOCAINE 4% PATCH TOPICAL SCH (09:07)
[2024-01-08] MEDS: FLUoxetine HCL 20 MG CAP PO SCH (09:08)
[2024-01-08] MEDS: NICOTINE 21MG/24HR PATCH TRANSDERM SCH (09:08)
[2024-01-08] MEDS: lisinopriL 10 MG TAB PO SCH (09:08)
[2024-01-08] MEDS: ASPIRIN 325 MG TAB PO SCH (09:08)
[2024-01-08] MEDS: THIAMINE 100 MG TAB PO SCH (09:08)
[2024-01-08 09:44] LABS: Carbon Dioxide 21.7 mmol/L (21.6-31.8); Chloride 98 mmol/L (96-109); Chol/HDL Ratio 1.88 Ratio; Glucose 139 mg/dL (70-110); LDL Cholesterol,Calculated 73.7 mg/dL (0.0-131.0); Potassium 4.5 mmol/L (3.5-5.5); Sodium 131 mmol/L (135-145); VLDL Calculation 11.68 mg/dL (5.00-40.00)
[2024-01-08 09:45] LABS: ALT 29 U/L (8-44); AST 33 U/L (13-35); Albumin 3.9 g/dL (3.8-4.9); Albumin/Globulin Ratio 1.77 Ratio (1.60-3.17); Alkaline Phosphatase 72 U/L (41-126); Calcium 9.3 mg/dL (8.7-10.3); Globulin 2.2 g/dL (1.6-3.3); Total Bilirubin 0.4 mg/dL (0.3-1.2); Total Protein 6.1 g/dL (6.2-8.2)
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
--- NOTE | 2024-01-08 12:31 | XR ---
Cervical spine. HISTORY: Cervical radiculopathy. COMPARISON: None. TECHNIQUE: 5 views of the cervical spine were obtained. FINDINGS: The cranial vertebral junction relationships and prevertebral soft tissues are normal. The cervical vertebral segments are normal in height and alignment and there is no fracture or sublux ation. There is mild disc space narrowing at the C5-6 level. There is moderate osteoarthritic change of the intervertebral joints at C5-6. There is severe bony neural foraminal encroachment at C5-6 bilaterally secondary to uncovertebral joint spurring. IMPRESSION: Severe bony neural foraminal encroachment at C5-6 bilaterally as described above.
[2024-01-08] MEDS: dexAMETHasone 4 MG TAB PO SCH (13:23)
[2024-01-08] MEDS: chlordiazePOXIDE 25 MG CAP PO STA (13:23)
[2024-01-08] MEDS: KETOROLAC 15 MG/ML 1 ML VIAL IVP PRN (14:02)
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
[2024-01-08] MEDS: chlordiazePOXIDE 25 MG CAP PO SCH (16:53)
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
[2024-01-09 15:23] VITALS: BP 144/91; PULSE 83; RESP 16; TEMP 98.2
--- NOTE | 2024-01-09 16:11 | MR ---
EXAMINATION TYPE: MR thoracic spine wo con DATE OF EXAM: 01/09/2024 4:04 PM COMPARISON: NONE HISTORY: R/O fracture Multiplanar MultiSpin echo imaging of the thoracic spine was performed. Disc spaces: No evidence for herniation protrusion or significant degenerative disc disease. Spinal canal: No evidence for canal stenosis. No intrinsic or extrinsic lesion. Thoracic spinal cord: Thoracic spinal cord is of normal caliber and signal. Paraspinal soft tissues: No evidence for paraspinal mass. No destructive lesions seen. Vertebral segments: No evidence for fracture or bony lesion. IMPRESSION: Negative study
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
== END 2024-01-09 17:15 | disposition home or self-care (01) ==
LOC: EC 13:09 → 6NMEDSUR 16:56
PROVIDERS: ADMIT Hospitalist; ATTEND Hospitalist
DX: R07.89 Other chest pain (principal); M54.14 Radiculopathy, thoracic region; J45.909 Unspecified asthma, uncomplicated; F32.A Depression, unspecified; I10 Essential (primary) hypertension; M54.12 Radiculopathy, cervical region; R79.89 Other specified abnormal findings of blood chemistry; E87.1 Hypo-osmolality and hyponatremia; K70.10 Alcoholic hepatitis without ascites; F17.210 Nicotine dependence, cigarettes, uncomplicated; F10.239 Alcohol dependence with withdrawal, unspecified; F12.90 Cannabis use, unspecified, uncomplicated; Z79.899 Other long term (current) drug therapy
CPT/HCPCS: 96376 ×3; 96372; 96374; 96375; 99285; 36415; 94640 ×5; 94760 ×2; 93005; 85379; 80061; 80053 ×2; 83735; 84484; 85025; 85610; 85730; 72050; 71046; 71275; 72146; G0378 ×3; S4990 ×3; J8540 ×2; J2060 ×3; J1100; J3411; J1885 ×3; Q9967